=== PATIENT | female | born 1960 | race Caucasian/White ===

== ENCOUNTER 2023-02-13 14:18 | Emergency (ER) | payer OTHER ==
--- OUTSIDE RECORDS SUMMARY | 2023-02-13 14:22 | XMS REPORT | Continuity of Care Document ---
:1960 Author Organization [facility] t Address [address] [place] [address] [place] [id number] Care Team Providers Name Role Phone MURPHY SOLIMAN Primary Care Physician Unavailable RADIOLOGY Attending Clinician Unavailable NAOMI VILLANUEVA Attending Clinician Unavailable Pob, [facility] Main Attending Clinician Unavailable Naomi Villanueva MD Attending Clinician Doctor Unassigned, [place] Attending Clinician Unavailable RIVKA VUONG Attending Clinician Unavailable Elio Franks MD Attending Clinician ELIO FRANKS Attending Clinician Unavailable Zaki Jackson MD Attending Clinician ZAKI JACKSON Attending Clinician Unavailable Payers Payer Name Policy Type Policy Number Effective Date Expiration Date S deandra [employer] MEDICARE OUT [id number] 2020 OF NETWORK 00:00:00 Problems Condition Condition Condition Status Onset Resolution Last Treating Co mments Source Name Details Category Date Date Treatment Clinician Date Abnormal Abnormal Disease Active Unive rs EKG EKG 12-02 ity of 00:00: [place] 00 Medical Branch BAUTISTA BAUTISTA Disease Active Univers (dyspnea (dyspnea 12-02 ity of on on 00:00: [place] exertion) exertion) [facility] get Branch 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 12-02 [place]y [place] ([place] 00 Medical Branch Allergies, Adverse Reactions, Alerts Allergy Allergy Status Severity Reaction(s) Onset Inactive Treating Comm ents Source Name Type Date Date Clinician ASPIRIN DRUG Active N/V 2016-06 Univers INGREDI 0 ity of 00:00: [place] 00 Medical Branch Aspirin Propensi Active Nausea 2016-06 Univers ty to and/or 009 ity of adverse Vomiting 00:00: [place] reaction 00 Medical s Branch Social History Social Habit Start Date Stop Date Quantity Comments Source Exposure to Not sure University SARS-CoV-2 (event) [facility] History of tobacco Cigarette Smoker University of use [facility] Alcohol intake 2018-07-30 2018-07-30 Current University of 00:00:00 00:00:00 non-drinker of [facility] alcohol Branch (finding) Cigarettes smoked 2016-12-02 2016-12-02 Univers ity of current (pack per 00:00:00 00:00:00 [facility] ) - Reported Branch Cigarette 2016-12-02 2016-12-02 University of pack-years 00:00:00 00:00:00 [facility] Sex Ass[birth year] At [birth year] Universit y of 00:00:00 00:00:00 [facility] Smoking Status Start Date Stop Date Source Current every day smoker 2016-12-02 00:00:00 Uni versity of [facility] Medications Ordered Filled Start Stop Current Ordering Indication Dosage Frequency Signature Comments Components Source Medication Medication Date Date Medication? Clinician (SIG) Name Name acetaminoph 2016-06 Yes 1{tbl} Take 1 Un víctor en-codeine 1-09 tablet by ity of (TYLENOL-CO 00:00: mouth [place] DEINE #3) 00 every 6 Medical 300-30 mg (six) Branch tablet hours as needed for Pain (scale 4-6) (for cough). cyclobenzap 2016-06 Yes 10mg Take 1 Univ ers rine 10 mg 1-09 tablet by ity of tablet 00:00: mouth 3 00 (three) Medical times [place] daily. acetaminoph 2016-06 Yes 1{tbl} Take 1 Un víctor en-codeine 1-09 tablet by ity of (TYLENOL-CO 00:00: mouth [place] DEINE #3) 00 every 6 Medical 300-30 mg (six) Branch tablet hours as needed for Pain (scale 4-6) (for cough). cyclobenzap 2016-06 Yes 10mg Take 1 Univ ers rine 10 mg 1-09 tablet by ity of tablet 00:00: mouth 3 [place] 00 (three) Medical times [place] daily. acetaminoph 2016-06 Yes 1{tbl} Take 1 Un víctor en-codeine 1-09 tablet by ity of (TYLENOL-CO 00:00: mouth [place] DEINE #3) 00 every 6 Medical 300-30 mg (six) Branch tablet hours as needed for Pain (scale 4-6) (for cough). cyclobenzap 2016-06 Yes 10mg Take 1 Univ ers rine 10 mg 1-09 tablet by ity of tablet 00:00: mouth 3 [place] 00 (three) Medical times Branch daily. acetaminoph 2016-06 Yes 1{tbl} Take 1 Un víctor en-codeine 1-09 tablet by ity of (TYLENOL-CO 00:00: mouth [place] DEINE #3) 00 every 6 Medical 300-30 mg (six) Branch tablet hours as needed for Pain (scale 4-6) (for cough). cyclobenzap 2016-06 Yes 10mg Take 1 Univ ers rine 10 mg 1-09 tablet by ity of tablet 00:00: mouth 3 [place] 00 (three) Medical times Branch daily. acetaminoph 2016-06 Yes 1{tbl} Take 1 Un víctor en-codeine 1-09 tablet by ity of (TYLENOL-CO 00:00: mouth [place] DEINE #3) 00 every 6 Medical 300-30 mg (six) Branch tablet hours as needed for Pain (scale 4-6) (for cough). cyclobenzap 2016-06 Yes 10mg Take 1 Univ ers rine 10 mg 1-09 tablet by ity of tablet 00:00: mouth 3 [place] 00 (three) Medical times Branch daily. acetaminoph 2016-06 Yes 1{tbl} Take 1 Un víctor en-codeine 1-09 tablet by ity of (TYLENOL-CO 00:00: mouth [place] DEINE #3) 00 every 6 Medical 300-30 mg (six) Branch tablet hours as needed for Pain (scale 4-6) (for cough). cyclobenzap 2016-06 Yes 10mg Take 1 Univ ers rine 10 mg 1-09 tablet by ity of tablet 00:00: mouth 3 [place] 00 (three) Medical times Branch daily. acetaminoph 2016-06 Yes 1{tbl} Take 1 Un víctor en-codeine 1-09 tablet by ity of (TYLENOL-CO 00:00: mouth [place] DEINE #3) 00 every 6 Medical 300-30 mg (six) Branch tablet hours as needed for Pain (scale 4-6) (for cough). cyclobenzap 2016-06 Yes 10mg Take 1 Univ ers rine 10 mg 1-09 tablet by ity of tablet 00:00: mouth 3 [place] 00 (three) Medical times Branch daily. acetaminoph 2016-06 Yes 1{tbl} Take 1 Un víctor en-codeine 1-09 tablet by ity of (TYLENOL-CO 00:00: mouth [place] DEINE #3) 00 every 6 Medical 300-30 mg (six) Branch tablet hours as needed for Pain (scale 4-6) (for cough). cyclobenzap 2016-06 Yes 10mg Take 1 Univ ers rine 10 mg 1-09 tablet by ity of tablet 00:00: mouth 3 [place] 00 (three) Medical times Branch daily. acetaminoph 2016-06 Yes 1{tbl} Take 1 Un víctor en-codeine 1-09 tablet by ity of (TYLENOL-CO 00:00: mouth [place] DEINE #3) 00 every 6 Medical 300-30 mg (six) Branch tablet hours as needed for Pain (scale 4-6) (for cough). cyclobenzap 2016-06 Yes 10mg Take 1 Univ ers rine 10 mg 1-09 tablet by ity of tablet 00:00: mouth 3 [place] 00 (three) Medical times Branch daily. acetaminoph 2016-06 Yes 1{tbl} Take 1 Un víctor en-codeine 1-09 tablet by ity of (TYLENOL-CO 00:00: mouth [place] DEINE #3) 00 every 6 Medical 300-30 mg (six) Branch tablet hours as needed for Pain (scale 4-6) (for cough). cyclobenzap 2016-06 Yes 10mg Take 1 Univ ers rine 10 mg 1-09 tablet by ity of tablet 00:00: mouth 3 [place] 00 (three) Medical times Branch daily. acetaminoph 2016-06 Yes 1{tbl} Take 1 Un víctor en-codeine 1-09 tablet by ity of (TYLENOL-CO 00:00: mouth [place] DEINE #3) 00 every 6 Medical 300-30 mg (six) Branch tablet hours as needed for Pain (scale 4-6) (for cough). cyclobenzap 2016-06 Yes 10mg Take 1 Univ ers rine 10 mg 1-09 tablet by ity of tablet 00:00: mouth 3 [place] 00 (three) Medical times Branch daily. acetaminoph 2016-06 Yes 1{tbl} Take 1 Un víctor en-codeine 1-09 tablet by ity of (TYLENOL-CO 00:00: mouth [place] DEINE #3) 00 every 6 Medical 300-30 mg (six) Branch tablet hours as needed for Pain (scale 4-6) (for cough). cyclobenzap 2016-06 Yes 10mg Take 1 Univ ers rine 10 mg 1-09 tablet by ity of tablet 00:00: mouth 3 [place] 00 (three) Medical times [place] daily. APIXABAN 2016-06 Yes [id number] Take by U nivers (ELIQUIS 0-09 mouth. ity of ORAL) 20:04: [address] APIXABAN 2016-06 Yes [id number] Take by U nivers (ELIQUIS 0-09 mouth. ity of ORAL) 20:04: [address] APIXABAN 2016-06 Yes [id number] Take by U nivers (ELIQUIS 0-09 mouth. ity of ORAL) 20:04: [address] APIXABAN 2016-06 Yes [id number] Take by U nivers (ELIQUIS 0-09 mouth. ity of ORAL) 20:04: [address] APIXABAN 2016-06 Yes [id number] Take by U nivers (ELIQUIS 0-09 mouth. ity of ORAL) 20:04: [address] APIXABAN 2016-06 Yes [id number] Take by U nivers (ELIQUIS 0-09 mouth. ity of ORAL) 20:04: [address] APIXABAN 2016-06 Yes [id number] Take by U nivers (ELIQUIS 0-09 mouth. ity of ORAL) 20:04: [address] APIXABAN 2016-06 Yes [id number] Take by U nivers (ELIQUIS 0-09 mouth. ity of ORAL) 20:04: [address] APIXABAN 2016-06 Yes [id number] Take by U nivers (ELIQUIS 0-09 mouth. ity of ORAL) 20:04: [address] APIXABAN 2016-06 Yes [id number] Take by U nivers (ELIQUIS 0-09 mouth. ity of ORAL) 20:04: [address] Branch APIXABAN 2016-06 Yes [id number] Take by U nivers (ELIQUIS 0-09 mouth. ity of ORAL) 15:04: [address] APIXABAN 2016-06 Yes [id number] Take by U nivers (ELIQUIS 0-09 mouth. ity of ORAL) 15:04: [address] Branch Hydrocodone 2016-06 Yes 1{tbl} Take 1 Un víctor -Acetaminop 0-09 tablet by ity of hen 00:00: mouth [place] (VICODIN) 00 every 6 Medical 5-300 mg (six) Branch tablet hours as needed for Pain (scale 1-3). Hydrocodone 2016-06 Yes 1{tbl} Take 1 Un víctor -Acetaminop 0-09 tablet by ity of hen 00:00: mouth [place] (VICODIN) 00 every 6 Medical 5-300 mg (six) Branch tablet hours as needed for Pain (scale 1-3). Hydrocodone 2016-06 Yes 1{tbl} Take 1 Un víctor -Acetaminop 0-09 tablet by ity of hen 00:00: mouth [place] (VICODIN) 00 every 6 Medical 5-300 mg (six) Branch tablet hours as needed for Pain (scale 1-3). Hydrocodone 2016-06 Yes 1{tbl} Take 1 Un víctor -Acetaminop 0-09 tablet by ity of hen 00:00: mouth [place] (VICODIN) 00 every 6 Medical 5-300 mg (six) Branch tablet hours as needed for Pain (scale 1-3). Hydrocodone 2016-06 Yes 1{tbl} Take 1 Un víctor -Acetaminop 0-09 tablet by ity of hen 00:00: mouth [place] (VICODIN) 00 every 6 Medical 5-300 mg (six) Branch tablet hours as needed for Pain (scale 1-3). Hydrocodone 2016-06 Yes 1{tbl} Take 1 Un víctor -Acetaminop 0-09 tablet by ity of hen 00:00: mouth [place] (VICODIN) 00 every 6 Medical 5-300 mg (six) Branch tablet hours as needed for Pain (scale 1-3). Hydrocodone 2016-06 Yes 1{tbl} Take 1 Un víctor -Acetaminop 0-09 tablet by ity of hen 00:00: mouth [place] (VICODIN) 00 every 6 Medical 5-300 mg (six) Branch tablet hours as needed for Pain (scale 1-3). Hydrocodone 2016-06 Yes 1{tbl} Take 1 Un víctor -Acetaminop 0-09 tablet by ity of hen 00:00: mouth [place] (VICODIN) 00 every 6 Medical 5-300 mg (six) Branch tablet hours as needed for Pain (scale 1-3). Hydrocodone 2016-06 Yes 1{tbl} Take 1 Un víctor -Acetaminop 0-09 tablet by ity of hen 00:00: mouth [place] (VICODIN) 00 every 6 Medical 5-300 mg (six) Branch tablet hours as needed for Pain (scale 1-3). Hydrocodone 2016-06 Yes 1{tbl} Take 1 Un víctor -Acetaminop 0-09 tablet by ity of hen 00:00: mouth [place] (VICODIN) 00 every 6 Medical 5-300 mg (six) Branch tablet hours as needed for Pain (scale 1-3). Hydrocodone 2016-06 Yes 1{tbl} Take 1 Un víctor -Acetaminop 0-09 tablet by ity of hen 00:00: mouth [place] (VICODIN) 00 every 6 Medical 5-300 mg (six) Branch tablet hours as needed for Pain (scale 1-3). Hydrocodone 2016-06 Yes 1{tbl} Take 1 Un víctor -Acetaminop 0-09 tablet by ity of hen 00:00: mouth [place] (VICODIN) 00 every 6 Medical 5-300 mg (six) Branch tablet hours as needed for Pain (scale 1-3). ELIQUIS 5 2017-0 Yes 5mg Take 5 mg Uni vers mg tablet 9-21 by mouth 2 ity of 00:00: (two) [place] 00 times Medical daily. Branch phentermine 2017-0 Yes 37.5mg Take 37.5 Univers 37.5 mg 9-21 mg by ity of tablet 00:00: mouth [place] 00 every Medical morning. Branch ELIQUIS 5 2017-0 Yes 5mg Take 5 mg Uni vers mg tablet 9-21 by mouth 2 ity of 00:00: (two) [place] 00 times Medical daily. Branch phentermine 2017-0 Yes 37.5mg Take 37.5 Univers 37.5 mg 9-21 mg by ity of tablet 00:00: mouth [place] 00 every Medical morning. Branch ELIQUIS 5 2017-0 Yes 5mg Take 5 mg Uni vers mg tablet 9-21 by mouth 2 ity of 00:00: (two) [place] 00 times Medical daily. Branch ELIQUIS 5 2017-0 Yes 5mg Take 5 mg Uni vers mg tablet 9-21 by mouth 2 ity of 00:00: (two) [place] 00 times Medical daily. Branch phentermine 2017-0 Yes 37.5mg Take 37.5 Univers 37.5 mg 9-21 mg by ity of tablet 00:00: mouth [place] 00 every Medical morning. Branch phentermine 2017-0 Yes 37.5mg Take 37.5 Univers 37.5 mg 9-21 mg by ity of tablet 00:00: mouth [place] 00 every Medical morning. Branch ELIQUIS 5 2016-0 Yes 5mg Take 5 mg Uni vers mg tablet 9-21 by mouth 2 ity of 00:00: (two) [place] 00 times Medical daily. Branch phentermine 2017-0 Yes 37.5mg Take 37.5 Univers 37.5 mg 9-21 mg by ity of tablet 00:00: mouth [place] 00 every Medical morning. Branch ELIQUIS 5 2016-0 Yes 5mg Take 5 mg Uni vers mg tablet 9-21 by mouth 2 ity of 00:00: (two) [place] 00 times Medical daily. Branch phentermine 2017-0 Yes 37.5mg Take 37.5 Univers 37.5 mg 9-21 mg by ity of tablet 00:00: mouth [place] 00 every Medical morning. Branch ELIQUIS 5 2017-0 Yes 5mg Take 5 mg Uni vers mg tablet 9-21 by mouth 2 ity of 00:00: (two) [place] 00 times Medical daily. Branch phentermine 2017-0 Yes 37.5mg Take 37.5 Univers 37.5 mg 9-21 mg by ity of tablet 00:00: mouth [place] 00 every Medical morning. Branch ELIQUIS 5 2017-0 Yes 5mg Take 5 mg Uni vers mg tablet 9-21 by mouth 2 ity of 00:00: (two) [place] 00 times Medical daily. Branch phentermine 2017-0 Yes 37.5mg Take 37.5 Univers 37.5 mg 9-21 mg by ity of tablet 00:00: mouth [place] 00 every Medical morning. Branch ELIQUIS 5 2017-0 Yes 5mg Take 5 mg Uni vers mg tablet 9-21 by mouth 2 ity of 00:00: (two) [place] 00 times Medical daily. Branch phentermine 2017-0 Yes 37.5mg Take 37.5 Univers 37.5 mg 9-21 mg by ity of tablet 00:00: mouth [place] 00 every Medical morning. Branch ELIQUIS 5 2017-0 Yes 5mg Take 5 mg Uni vers mg tablet 9-21 by mouth 2 ity of 00:00: (two) [place] 00 times Medical daily. Branch phentermine 2017-0 Yes 37.5mg Take 37.5 Univers 37.5 mg 9-21 mg by ity of tablet 00:00: mouth [place] 00 every Medical morning. Branch ELIQUIS 5 2017-0 Yes 5mg Take 5 mg Uni vers mg tablet 9-21 by mouth 2 ity of 00:00: (two) [place] 00 times Medical daily. Branch phentermine 2017-0 Yes 37.5mg Take 37.5 Univers 37.5 mg 9-21 mg by ity of tablet 00:00: mouth [place] 00 every Medical morning. Branch ELIQUIS 5 2017-0 Yes 5mg Take 5 mg Uni vers mg tablet 9-21 by mouth 2 ity of 00:00: (two) [place] 00 times Medical daily. Branch phentermine 2017-0 Yes 37.5mg Take 37.5 Univers 37.5 mg 9-21 mg by ity of tablet 00:00: mouth [place] 00 every Medical morning. Branch Procedures Procedure Date / Time Performing Clinician Source Performed PROTEIN URINE, URINALYSIS 2021-04-02 15:24:00 Elio Franks [facility] [place] [facility] URINALYSIS 2021-04-02 15:24:00 Elio Franks [facility] [place] [facility] PHOSPHORUS 2021-04-02 15:16:00 Elio Franks [facility] [place] [facility] ALBUMIN 2021-04-02 15:16:00 Elio Franks [facility] [place] [facility] URIC ACID 2021-04-02 15:16:00 Elio Franks [facility] [place] [facility] THYROID STIMULATING 2021-04-02 15:16:00 Elio Franks [facility] HORMONE Medical Branch BASIC METABOLIC PANEL (NA, 2021-04-02 15:16:00 Elio Franks [facility] K, CL, CO2, GLUCOSE, BUN, Medica l Branch CREATININE, CA) ASSIGNMENT OF BENEFITS 2021-04-02 14:54:20 [facility] [place] [facility] ASSIGNMENT OF BENEFITS 2020-03-20 18:39:26 [facility] [place] [facility] ASSIGNMENT OF BENEFITS 2019-09-04 20:12:22 Doctor Unassigned, [facility] [place] [facility] NO SHOW OR MISSED 2019-08-26 16:29:44 Doctor Loly, [facility] APPOINTMENT POLICY [place] [facility]anc h ACKNOWLEDGEMENT CONSENT/REFUSAL FOR 2019-07-09 17:43:32 Doctor Loly, [facility] DIAGNOSIS AND TREATMENT [place] [facility] ASSIGNMENT OF BENEFITS 2019-07-09 17:43:12 Doctor Unassigned, [facility] [place] [facility] Encounters Start End Encounter Admission Attending Care Care Encounter Source Date/Time Date/Time Type Type Clinicians Facility Department ID 2022-09-14 2022-09-14 Outpatient R [facility]OLOG[facility] [id number] Univers 00:00:00 00:00:00 delmis [facility] 2022-03-30 2022-03-30 Outpatient R [facility] [id number] [facility] 13:15:00 13:15:00 NAOMI benites [facility] 2021-04-02 2021-04-02 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 [place] [facility] 1.2.8 40.114 [id number] [facility] 09:54:09 13:27:09 Visit Naomi [facility]ue[id number] [facility] [id number] Marya mendoza Professio [phone] [place] [address] Branch [facility] 2021-04-02 2021-04-02 Outpatient R [facility] [id number] [facility] 09:30:00 09:30:00 NAOMI benites [facility] 2021-04-02 2021-04-02 Orders Doctor ROLANDA [id number] Univers 00:00:00 00:00:00 Only Unassigned, LINDA [id number] ity of [place] [facility] [id number] [place] as [phone] [address] 2020-03-26 2020-03-26 [facility] [id number] Univers 14:00:00 14:00:00 RIVKA benites o f [facility] 2020-03-20 2020-03-20 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 Jeana, Adc Lab Main [facility] 1.2.8 40.114 [id number] Univers 13:51:21 14:06:21 Visit Elio Franks [id number] ity of [place] [id number] [place] Profess[place] [phone] [address] 2020-03-20 2020-03-20 [facility] [id number] Univers 13:45:00 13:45:00 MANAF ity [facility] 2020-03-20 2020-03-20 Orders Doctor ROLANDA [id number] Univers 00:00:00 00:00:00 Only Unassigned, LINDA [id number] ity of [place] [facility] [id number] [place] [phone] [address] 2019-09-04 2019-09-04 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 Jeana, [facility]c Lab Main [facility] 1.2.8 40.114 [id number] Univers 15:16:22 15:31:22 Visit Elio Franks [id number] ity of [place] 4[place]7.2.[place] Profess[place] [phone] [address] 2019-09-04 2019-09-04 [facility] [id number] Univers 15:15:00 15:15:00 MANAF ity [facility] 2019-09-04 2019-09-04 Orders Doctor ROLANDA [id number] Univers 00:00:00 00:00:00 Only Unassigned, LINDA [id number] ity of [place] [facility] [id number] [place] [phone] [address] 2019-08-28 2019-08-28 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 Jeana, [facility]c Lab Main [facility] 1.2.8 40.114 [id number] Univers 08:40:32 08:55:32 Visit SergeyZaki sibley Philippe [place] 350.1.13 .10 [place] 4[place]2.7.2.[place] [id number] [address] 2019-08-28 2019-08-28 Outpatient R SERGEY, [facility] [id number] Univers 08:45:00 08:45:00 ZAKI benites [facility] 2019-08-26 2019-08-26 Outpatient R BRUNAMiriam, [facility] [id number] Univers 11:30:00 11:30:00 ELIO benites [facility] 2019-08-26 2019-08-26 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 Jeana, [facility] Lab Main [facility] 1.2.8 40.114 [id number] Univers 10:29:40 11:22:05 Visit Elio Franks [id number] it[place] 4[place]2.7.2.[place] [phone] [address] 2019-08-26 2019-08-26 Orders Doctor ORANTES [id number] Univers 00:00:00 00:00:00 Only Unassigned, LINDA [id number] ity of [place] [facility] [id number] [place] [phone] [address] 2019-07-09 2019-07-09 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 Jeana, [facility] Lab Main [facility] 1.2.8 40.114 [id number] Univers 11:46:26 12:01:26 Visit Elio Franks [id number] ity [place] 4[place]2.[place].2.686 [place] [phone] [address] 2019-07-09 2019-07-09 Orders Doctor ORANTES 1.2.840.114 [id number] Univers 00:00:00 00:00:00 Only Unassigned, LINDA [id number] ity of [place] [facility] [id number] [place] as [phone] [address] Results Test Description Test Time Test Comments Results Result Comments Source THYROID STIMULATING HORMONE 2021-04-02 16:50:19 Test Item Value Reference Range Interpretation Comme nts TSH (test code = 5845399054) See_Comment L [Automated message] The system which generated this result transmitted ref erence range: 0.45 - 4.70 mIU /L. The reference range was not u sed to interpret this result as normal/abnormal. Lab Interpretation (test code Abnormal = 24732-0) [facility] METABOLIC PANEL (NA, K, CL, CO2, GLUCOSE, BUN, CREATININE, CA)2021-04-02 16:21:34 Test Item Value Reference Range Interpretation Comments NA (test code = 143 mmol/L 135-145 8284688915) K (test code = 4.6 mmol/L 3.5-5.0 4814976074) CL (test code = 106 mmol/L 98-108 9218989273) CO2 TOTAL (test code = 34 mmol/L 23-31 H 0846034424) AGAP (test code = 2-16 5611026649) BUN (test code = 19 mg/dL 7-23 2786841544) GLUCOSE (test code = 115 mg/dL 70-110 H 6706965993) CREATININE (test code = 0.97 mg/dL 0.50-1.04 9902823417) CALCIUM (test code = 10.1 mg/dL 8.6-10.6 5121517204) eGFR (test code = mL/min/1.73m2 9742484178) FAISAL (test code = FAISAL) Association of Glomerular Filtration Rate (GFR) and Staging of Kidney Disease* + --+ --+ ------+| GFR (mL/min/1.73 m2) ?| With Kidney Damage ?| ?Without Kidney Damage+ --------+ --------+ +| ?>90 ?| ?Stage one ?| ? Normal ?+ ---+ ---+ -------+| ?60-89 ?| ?Stage two ?| ? Decreased GFR ? + --+ --+ ------+| ?30-59 ?| ?Stage three ?| ? Stage three ? + --+ --+ ------+| ?15-29 ?| ?Stage four ? | ? Stage four ?+ ---+ ---+ -------+| ?<15 (or dialysis) ? ?| ?Stage five ? | ? Stage five ?+ ---+ ---+ -------+ *Each stage assumes the associated GFR level has been in effect for at least three months. ?Stages 1 to 5, with or without kidney disease, indicate chronic kidney disease. Notes: Determination of stages one and two (with eGFR >59mL/min/1.73 m2) requires estimation of kidney damage for at least three months as defined by structural or functional abnormalities of the kidney, manifested by either:Pathological abnormalities or Markers of kidney damage (including abnormalities in the composition of the blood or urine or abnormalities in imaging tests). Lab Interpretation Abnormal (test code = 29389-2) [facility] [place] [facility] 16:21:14 Test Item Value Reference Range Interpretation Comments PHOSPHORUS (test code = 7007080576) 3.1 mg/dL 2.5-5.0 Lab Interpretation (test code = Normal 19107-4) [facility] [place] [facility] [id number] 16:21:14 Test Item Value Reference Range Interpretation Comments URIC ACID (test code = 6839814265) 4.8 mg/dL 2.9-6.0 Lab Interpretation (test code = Normal 47001-5) [facility] [place] [facility] 16:17:53 Test Item Value Reference Range Interpretation Comments ALBUMIN (test code = 6810505805) 4.3 g/dL 3.5-5.0 Lab Interpretation (test code = Normal 60071-9) [facility] [place] [facility]"
--- NOTE | 2023-02-13 16:43 | RAD REPORT ---
EXAM DESCRIPTION: USExtremity Venous Uni Ltd02/13/2023 4:15 pm CLINICAL HISTORY: left leg swelling COMPARISON: 2017 FINDINGS: Left common femoral, superficial femoral, greater saphenous, popliteal and posterior tibi al veins are compressible and demonstrate augmentation. Doppler demonstrates good flow. Grayscale, color and spectral analysis performed on all vessels IMPRESSION: No evidence of deep venous thrombosis involving the left lower extremity.
[2023-02-13 17:36] LABS: Hematocrit 44.7 % (36.0-45.0); Lymphocytes % 31.8 % (15.3-44.8); MCV 98.8 fL (80-100); MPV 7.4 fL (7.6-11.3); Platelets 255 thou/uL (152-406); RBC Red Blood Cell Count 4.53 M/uL (3.86-4.86)
[2023-02-13 17:54] LABS: Potassium 3.7 mEq/L (3.5-5.1)
--- NOTE | 2023-02-13 18:14 | EDPHYS ---
Physician Documentation [facility] Name: Carolann Gonzales Age: 62 yrs Sex: Female : 1960 Arrival Date: 02/13/2023 Time: 14:18 Bed 12 Private MD: ED Physician Kang Pineda HPI: 02/13 15:12 This 62 yrs old Female presents to ER via Ambulatory with complaints of Leg Swelling. aj3 15:12 Left lower leg swelling has been ongoing for the last couple months but worse the last aj3 2 days. She is on Eliquis for previous DVT and PE. She denies any leg pain, redness, bruising, shortness of breath, fever or chills.. 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 - Social history:: Smoking status: Patient reports the use of cigarette tobacco products, smokes one pack cigarettes per day. ROS: 15:31 Constitutional: Negative for fever, chills, and weight loss, Cardiovascular: Negative aj3 for chest pain, palpitations, and edema, Respiratory: Negative for shortness of breath, cough, wheezing, and pleuritic chest pain, Skin: Negative for injury, rash, and discoloration, Neuro: Negative for syncope, headache, weakness, numbness, tingling, and seizure. 15:31 MS/extremity: Positive for swelling, Negative for pain, tenderness. Exam: 15:30 Constitutional: This is a well developed, well nourished patient who is awake, alert, aj3 and in no acute distress. Cardiovascular: Regular rate and rhythm with a normal S1 and S2. No gallops, murmurs, or rubs. Normal PMI, no JVD. No pulse deficits. Respiratory: Lungs have equal breath sounds bilaterally, clear to auscultation and percussion. No rales, rhonchi or wheezes noted. No increased work of breathing, no retractions or nasal flaring. Skin: Warm, dry with normal turgor. Normal color with no rashes, no lesions, and no evidence of cellulitis. Neuro: Awake and alert, GCS 15, oriented to person, place, time, and situation. Motor strength 5/5 in all extremities. Sensory grossly intact. Normal gait. 15:30 Musculoskeletal/extremity: Exam is negative for ecchymosis, erythema, tenderness, Extremities: noted in the lateral aspect of left calf and left ontiveros: swelling. Vital Signs: 14:52 BP 93 / 60; Pulse 74; Resp 18; Temp 97.2; Pulse Ox 96% ; Pain 0/10; ll1 17:22 BP 112 / 84; Pulse 70; Resp 16; Pulse Ox 97% on R/A; mb9 14:52 Pain Scale: Adult ll1 MDM: 14:59 Patient medically screened. aj3 17:56 Differential Diagnosis DVT, electrolyte imbalance, fluid retention, renal aj3 insufficiency, CHF. Data reviewed: vital signs, nurses notes. Historians other than the Patient: Spouse/Significant Other: . Care significantly affected by the following chronic conditions: Chronic Obstructive Pulmonary Disease, DVT/PE. 17:56 Counseling: I had a detailed discussion with the patient and/or guardian regarding aj3 radiology results. 02/13 15:15 Order name: BMP; Complete Time: 18:05 aj3 02/13 15:15 Order name: CBC with Diff; Complete Time: 17:42 aj3 02/13 15:15 Order name: BNP; Complete Time: 18:05 aj3 02/13 15:15 Order name: US Extremity Venous Unilateral Ltd; Complete Time: 16:58 aj3 Administered Medications: No medications were administered Disposition: 17:56 I reviewed the patient's care provided by Advanced Practice Provider \\T\\ agree w/ the cp3 diagnosis \\T\\ care plan. I personally saw the pt \\T\\ performed a substantive portion of the visit, incldng all aspects of the (History/Exam/Medical Decision Making). Disposition Summary: 02/13/23 18:13 Discharge Ordered Location: Home aj3 Problem: new aj3 Symptoms: are unchanged aj3 Condition: Stable aj3 Diagnosis - Edema, unspecified aj3 - Disorder of kidney and ureter, unspecified aj3 - Family history of asthma and other chronic lower respiratory diseases aj3 Followup: aj3 - With: Private Physician - When: - Reason: Recheck today's complaints, Re-evaluation by your physician Discharge Instructions: - Discharge Summary Sheet aj3 - Peripheral Edema aj3 Forms: - Work release form aj3 - Medication Reconciliation Form aj3 - Thank You Letter aj3 - Antibiotic Education aj3 - Prescription Opioid Use aj3 - Patient Portal Instructions aj3 - Leadership Thank You Letter aj3 Signatures: Dispatcher [employer] Kang Valdivia MD MD cp3 Asiya James RN RN ll1 Ana Fermin NP UNDERWRITING SALES REPRESENTATIVE aj3 Corrections: (The following items were deleted from the chart) 17:57 15:12 Left leg swelling this been ongoing for the last couple months but worse the last aj3 2 days. She is on Eliquis for previous DVT and PE.. aj3
--- NOTE | 2023-02-13 18:14 | ER ---
Nurse's Notes [facility] Name: Carolann Gonzales Age: 62 yrs Sex: Female : 1960 Arrival Date: 02/13/2023 Time: 14:18 Bed 12 Private MD: Diagnosis: Edema, unspecified;Disorder of kidney and ureter, unspecified;Family history of asthma and other chronic lower respiratory diseases Presentation: 02/13 14:52 Chief complaint: Patient states: L leg swelling (more severe) for 2 days. Happening for ll1 months. No falls/injury. Coronavirus screen: Vaccine status: Patient reports being unvaccinated. Client denies travel out of the [place] in the last 14 days. At this time, the client does not indicate any symptoms associated with coronavirus-19. Ebola Screen: Patient denies travel to an Ebola-affected area in the 21 days before illness onset. Initial Sepsis Screen: Does the patient meet any 2 criteria? No. Patient's initial sepsis screen is negative. Does the patient have a suspected source of infection? No. Patient's initial sepsis screen is negative. Risk Assessment: Do you want to hurt yourself or someone else? Patient reports no desire to harm self or others. Onset of symptoms was February 12, 2023. 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 - Social history:: Smoking status: Patient reports the use of cigarette tobacco products, smokes one pack cigarettes per day. Screenin:22 [facility] ED Fall Risk Assessment (Adult) History of falling in the last 3 months, mb9 including since admission No falls in past 3 months (0 pts) Confusion or Disorientation No (0 pts) Intoxicated or Sedated No (0 pts) Impaired Gait No (0 pts) Mobility Assist Device Used No (0 pt) Altered Elimination No (0 pt) Score/Fall Risk Level 0 - 2 = Low Risk Oriented to surroundings, Maintained a safe environment, Educated pt \\T\\ family on fall prevention, incl call for assistance when getting out of bed. Abuse screen: Denies threats or abuse. Nutritional screening: No deficits noted. Tuberculosis screening: No symptoms or risk factors identified. Assessment: 17:09 Reassessment: pt brought back to ER room. mb9 17:21 General: Appears in no apparent distress. Behavior is calm, cooperative. Pain: mb9 Complains of pain in left leg Pain does not radiate. Pain currently is 0 out of 10 on a pain scale. Quality of pain is described as throbbing, Is intermittent. Neuro: Felipe Agitation-Sedation Scale (RASS): 0 - Alert and Calm Level of Consciousness is awake, alert, obeys commands, Oriented to person, place, time, situation, Appropriate for age. Cardiovascular: Patient's skin is warm and dry. Cardiovascular: Pulses are all present. Respiratory: Airway is patent Respiratory effort is even, unlabored, Respiratory pattern is regular, symmetrical. GI: Abdomen is flat, non-distended. : No signs and/or symptoms were reported regarding the genitourinary system. Derm: Skin is pink, warm \\T\\ dry. Musculoskeletal: Swelling present in left leg. 18:32 Reassessment: No changes from previously documented assessment. Patient and/or family mb9 updated on plan of care and expected duration. Pain level reassessed. Patient is alert, oriented x 3, equal unlabored respirations, skin warm/dry/pink. Vital Signs: 14:52 BP 93 / 60; Pulse 74; Resp 18; Temp 97.2; Pulse Ox 96% ; Pain 0/10; ll1 17:22 BP 112 / 84; Pulse 70; Resp 16; Pulse Ox 97% on R/A; mb9 14:52 Pain Scale: Adult ll1 ED Course: 14:21 Patient arrived in ED. im 14:22 Ana Fermin NP is PHCP. aj3 14:22 Kang Pineda MD is Attending Physician. aj3 14:54 Triage completed. ll1 14:54 Arm band placed on. ll1 16:17 US Extremity Venous Unilateral Ltd In Process Unspecified. EDMS 17:21 Maryam Tamez RN is Primary Nurse. mb9 17:22 Placed in gown. Bed in low position. Call light in reach. Side rails up X 1. Client mb9 placed on continuous cardiac and pulse oximetry monitoring. NIBP monitoring applied. library monitor on. 17:22 No provider procedures requiring assistance completed. Inserted saline lock: 22 gauge mb9 in left antecubital area, using aseptic technique. 18:32 IV discontinued, intact, bleeding controlled, No redness/swelling at site. Pressure mb9 dressing applied. Administered Medications: No medications were administered Medication: 17:23 VIS not applicable for this client. mb9 Outcome: 18:13 Discharge ordered by . jovan 18:32 Discharged to home ambulatory. mb9 18:32 Condition: stable 18:32 Discharge instructions given to patient, Instructed on discharge instructions, follow up and referral plans. Demonstrated understanding of instructions, follow-up care. 18:32 Patient left the ED. mb9 Signatures: Dispatcher [employer] EDAsiya Salamanca RN RN ll1 Ana Fermin, GAUGER DELIVERY GAUGER DELIVERY [email or web address] Maryam Tamez RN RN mb9 Nimo Santoyo Corrections: (The following items were deleted from the chart) 14:55 14:52 Chief complaint: Patient states: L leg swelling for 2 days. No falls/injury. ll1 ll1
[2023-02-13 18:41] VITALS: TEMP 97.2
[2023-02-13 18:42] VITALS: BP 112/84; O2SAT 97
== END 2023-02-13 18:32 | disposition home or self-care (01) ==
LOC: ER 14:18
DX: R60.9 Edema, unspecified (principal); N28.9 Disorder of kidney and ureter, unspecified; J44.9 Chronic obstructive pulmonary disease, unspecified; Z82.5 Family history of asthma and other chronic lower respiratory diseases; F17.210 Nicotine dependence, cigarettes, uncomplicated; Z86.718 Personal history of other venous thrombosis and embolism; Z79.01 Long term (current) use of anticoagulants; Z88.5 Allergy status to narcotic agent; Z88.6 Allergy status to analgesic agent
CPT/HCPCS: 36415; 80048; 83880; 85025; 93971; 99284

== ENCOUNTER 2024-02-09 11:02 | Emergency (ER) | payer OTHER ==
[2024-02-09 12:33] LABS: Absolute Basophils 0.1 K/uL (0-0.5); Absolute Eosinophils 0.1 K/uL (0-0.5); Absolute Lymphocytes (CBC) 1.9 K/uL (0.7-4.9); Absolute Monocytes 0.4 K/uL (0.1-1.3); Absolute Neutrophil 3.7 K/uL (1.8-8.0); Basophils % 1.7 % (0-1.3); Eosinophils % 1.8 % (0-4.4); Hematocrit 44.1 % (36.0-45.0); Hemoglobin 13.9 g/dL (12.0-15.0); MCH 31.9 pg (27.0-35.0); MCHC 31.6 g/dL (32.0-36.0); MCV 101.1 fL (80-100); MPV 7.9 fL (7.6-11.3); Monocytes % 6.8 % (3.3-12.3); Neutrophils % 58.7 % (41.7-73.7); Platelets 265 thou/uL (152-406); RBC Red Blood Cell Count 4.37 M/uL (3.86-4.86); Red Cell Distribution Width 14.3 % (12.1-15.2)
[2024-02-09 12:45] LABS: Albumin 3.4 g/dL (3.4-5.0); Albumin/Globulin Ratio 0.9 (1.1-1.8); Anion Gap 4.4 mEq/L (5.0-15.0); Bilirubin Total 0.3 mg/dL (0.2-1.0); Potassium 4.4 mEq/L (3.5-5.1); Protein, Total 7.4 g/dL (6.4-8.2)
--- NOTE | 2024-02-09 14:19 | RAD REPORT ---
EXAM DESCRIPTION: CT - Chest For Pe Angio - 02/09/2024 1:04 pm CLINICAL HISTORY: CHEST PAIN COMPARISON: Lung Cancer Screening CT W/O dated 10/06/2022 TECHNIQUE: Thin axial CT images of the chest were obtained following administration of 100 mL Isovue 370 IV contrast. Multiplanar reconstructions, and maximum intensity projection reconstructions were generated and reviewed. Exam utilizes a protocol for optimal evaluation of pulmonary arterial tree. All CT scans are performed using dose optimization technique as appropriate and may include automated exposure control or mA/KV adjustment according to patient size. FINDINGS: Pulmonary arteries are normal. No emboli or other suspicious finding. No acute or signific ant aorta findings. Bronchiectatic changes in the lower lobes more pronounced on the right, with volume loss in the right more than left lobe. Areas of mucous plugging and aerated secretions in the bronchiectatic segments, also more pronounced on the right, with adjacent subsegmental airspace opacities, which are progress peter since the prior CT. Background mild to moderate centrilobular emphysematous changes. No pleural t hickening or pleural effusion. No pneumothorax. No abnormal mediastinal or hilar masses or lymphadenopathy seen. No chest wall mass or abnormal axill iary lymphadenopathy. IMPRESSION: No evidence of acute central pulmonary emboli. Bilateral lower lobe bronchiectatic changes, with progressive bronchial secretions/mucus plugging, an d adjacent subsegmental elements of airspace opacification, more so on the right. Findings suggest ac anna exacerbation of chronic lung disease, possibly COPD.
--- NOTE | 2024-02-09 15:39 | EDPHYS ---
Physician Documentation [facility] Name: Carolann Gonzales Age: 63 yrs Sex: Female : 1960 Arrival Date: 02/09/2024 Time: 11:02 Bed 19 Private MD: ED Physician Rajinder Monae HPI: 02/08 11:44 This 63 yrs old Female presents to ER via Ambulatory with complaints of ms3 Spitting up blood. 11:44 Patient is a 63-year-old female with past medical history of PE, DVT, COPD, pacemaker, ms3 uterine cancer presenting to the ER for 3-day history of coughing up blood clots upon waking in the mornings. Patient states that since Monday she has noticed 1-2 thick blood clots that she is coughed up with no additional bloody sputum production during the day after these. Patient reports she takes Eliquis for history of PE and DVT that was reduced from 5 mg twice daily to 2.5 mg daily last May after placement of a pacemaker. Patient also reports she has noticed an increase in coughing over the last few days but denies any chest pain, shortness of breath, fevers, chills.. Historical: - Allergies: 11:20 Codeine; hb 11:20 Tylenol; hb - Home Meds: 11:20 Eliquis 2.5 mg oral tablet once [Active]; oxybutynin chloride 10 mg Oral Tablet, hb Extended Release 24 hr daily [Active]; furosemide 20 mg Oral tablet [Active]; Senokot 8.6 mg Oral tablet daily [Active]; albuterol sulfate 2.5 mg /3 mL (0.083 %) Nebulizer Solution for Nebulization as needed [Active]; albuterol sulfate 90 mcg/actuation Inhl HFA Aerosol Inhaler as needed [Active]; simvastatin 20 mg Oral tablet daily [Active]; metoprolol tartrate 25 mg Oral tablet daily [Active]; - PMHx: 11:20 COPD; DVT; Uterine CA; hb - PSHx: 11:20 section; Cholecystectomy; hb - Immunization history:: Adult Immunizations up to date. - Infectious Disease History:: Denies. - Social history:: Smoking status: Patient reports the use of cigarette tobacco products, smokes 1.5 packs per day. ROS: 11:39 Constitutional: Negative for fever, and chills. ENT: Negative for injury, pain, and ms3 discharge, Neck: Negative for injury, pain, and swelling, Cardiovascular: Negative for chest pain, and palpitations. Respiratory: Negative for shortness of breath, wheezing, and pleuritic chest pain, Abdomen/GI: Negative for abdominal pain, nausea, vomiting, diarrhea, and constipation, : Negative for injury, bleeding, discharge, and swelling, Hematologic/Lymphatic: Negative for swollen nodes, abnormal bleeding, and unusual bruising, 11:39 ENT: Positive for 11:39 Respiratory: Positive for cough, hemoptysis, Negative for shortness of breath, wheezing, 11:39 MS/extremity: Positive for swelling, Negative for acute changes, pain, tingling, Exam: 11:58 Constitutional: This is a well developed, well nourished patient who is awake, alert, ms3 and in no acute distress. Neck: Trachea midline, no cervical lymphadenopathy. Supple, full range of motion without nuchal rigidity, or vertebral point tenderness. No Meningismus. Cardiovascular: Regular rate and rhythm with a normal S1 and S2. No gallops, murmurs, or rubs. Normal PMI, no JVD. No pulse deficits. 11:58 Respiratory: the patient does not display signs of respiratory distress, Respirations: normal, Breath sounds: bronchial sounds, that are mild, are heard in the left upper lobe, 13:19 ECG was reviewed by the Attending Physician. ms3 Vital Signs: 11:17 BP 101 / 60; Pulse 69; Resp 16; Temp 97.7(TE); Pulse Ox 96% on R/A; Weight 49.9 kg; hb Height 5 ft. 1 in. ; Pain 0/10; 12:27 BP 87 / 55; Pulse 70; Resp 20; Temp 97.9(O); Pulse Ox 90% on R/A; kj2 13:08 BP 111 / 75; Pulse 70; Resp 16; Pulse Ox 96% ; kj2 13:53 BP 112 / 71; Pulse 70; Resp 18; Pulse Ox 94% on R/A; kj2 15:41 BP 114 / 85; Pulse 72; Resp 18; Temp 97.9(O); Pulse Ox 100% on R/A; kj2 11:17 Body Mass Index 20.78 (49.90 kg, 154.94 cm) hb 11:17 Pain Scale: Adult hb MDM: 11:44 Patient medically screened. ms3 12:01 Differential Diagnosis: Pneumonia Other PE, Neoplasm. ms3 17:19 Data reviewed: vital signs, nurses notes, lab test result(s), EKG, radiologic studies, ms3 and as a result, I will discharge patient. Care significantly affected by the following chronic conditions: Chronic Obstructive Pulmonary Disease. Counseling: I had a detailed discussion with the patient and/or guardian regarding the historical points, exam findings, and any diagnostic results supporting the discharge/admit diagnosis, lab results, radiology results, the need for outpatient follow up, to return to the emergency department if symptoms worsen or persist or if there are any questions or concerns that arise at home. Special discussion: I discussed with the patient/guardian in detail that at this point there is no indication for admission to the hospital. It is understood, however, that if the symptoms persist or worsen the patient needs to return immediately for re-evaluation. ED course: Discussed CT and labs with patient and her . Patient to follow-up with her primary care physician in 2 to 3 days. Patient understands and agrees with plan. All questions were answered. Return precautions discussed include worsening symptoms, or any other concerns. 02/08 12:00 Order name: CBC with Diff; Complete Time: 12:50 ms3 02/08 12:00 Order name: CMP; Complete Time: 12:50 ms3 02/08 12:00 Order name: CT Chest For PE Angio; Complete Time: 14:22 ms3 02/08 12:00 Order name: EKG; Complete Time: 12:00 ms3 02/08 12:00 Order name: EKG - Nurse/Tech; Complete Time: 12:22 ms3 EC:19 Rate is 70 beats/min. Rhythm is regular. [place] interval is normal. QRS interval is ms3 prolonged. Clinical impression: NSR w/ Non-specific ST/T Changes and non-specific intraventricular block. Interpreted by me. Reviewed by me. Administered Medications: No medications were administered Disposition Summary: 02/09/24 15:38 Discharge Ordered Notes: Location: Home ms3 Condition: Stable ms3 Diagnosis - COPD/ Chronic obstructive pulmonary disease, unspecified ms3 - Hemoptysis ms3 Followup: ms3 - With: Eduard Varela MD - When: 2 - 3 days - Reason: Recheck today's complaints Discharge Instructions: - Discharge Summary Sheet ms3 - Chronic Obstructive Pulmonary Disease ms3 - Hemoptysis ms3 Forms: - Medication Reconciliation Form ms3 - Antibiotic Education ms3 - Prescription Opioid Use ms3 - Patient Portal Instructions ms3 - Leadership Thank You Letter ms3 Signatures: Dispatcher [employer] EDMS La Vivar, RN RN Rajinder Powell DO DO ms3 Lotus Michele RN RN kj2 Corrections: (The following items were deleted from the chart) 12:00 12:00 CBC+H.LAB.BRZ ordered. EDMS EDMS 12:00 12:00 COMPREHENSIVE METABOLIC PANEL+C.LAB.BRZ ordered. EDMS EDMS 12:00 12:00 Chest For PE Angio+CT.RAD.BRZ ordered. EDMS EDMS 12:27 12:26 PMHx: "Myotonia"; kj2 kj2
--- NOTE | 2024-02-09 15:39 | ER ---
Nurse's Notes [facility] Name: Carolann Gonzales Age: 63 yrs Sex: Female : 1960 Arrival Date: 02/09/2024 Time: 11:02 Bed 19 Private MD: Diagnosis: COPD/ Chronic obstructive pulmonary disease, unspecified;Hemoptysis Presentation: 02/08 11:17 Chief complaint: Coughing up blood clots x 2 days. Hx of DVT and PE. Takes Eliquis. hb Coronavirus screen: At this time, the client does not indicate any symptoms associated with coronavirus-19. Ebola Screen: No symptoms or risks identified at this time. Initial Sepsis Screen: Does the patient meet any 2 criteria? No. Patient's initial sepsis screen is negative. Does the patient have a suspected source of infection? No. Patient's initial sepsis screen is negative. Risk Assessment: Do you want to hurt yourself or someone else? Patient reports no desire to harm self or others. Onset of symptoms was February 08, 2024. 11:17 Method Of Arrival: Ambulatory hb 11:17 Acuity: GONZALEZ 3 hb Historical: - Allergies: 11:20 Codeine; hb 11:20 Tylenol; hb - Home Meds: 11:20 Eliquis 2.5 mg oral tablet once [Active]; oxybutynin chloride 10 mg Oral Tablet, hb Extended Release 24 hr daily [Active]; furosemide 20 mg Oral tablet [Active]; Senokot 8.6 mg Oral tablet daily [Active]; albuterol sulfate 2.5 mg /3 mL (0.083 %) Nebulizer Solution for Nebulization as needed [Active]; albuterol sulfate 90 mcg/actuation Inhl HFA Aerosol Inhaler as needed [Active]; simvastatin 20 mg Oral tablet daily [Active]; metoprolol tartrate 25 mg Oral tablet daily [Active]; - PMHx: 11:20 COPD; DVT; Uterine CA; hb - PSHx: 11:20 section; Cholecystectomy; hb - Immunization history:: Adult Immunizations up to date. - Infectious Disease History:: Denies. - Social history:: Smoking status: Patient reports the use of cigarette tobacco products, smokes 1.5 packs per day. Screenin:25 [facility] ED Fall Risk Assessment (Adult) History of falling in the last 3 months, kj2 including since admission No falls in past 3 months (0 pts) Confusion or Disorientation No (0 pts) Intoxicated or Sedated No (0 pts) Impaired Gait No (0 pts) Mobility Assist Device Used No (0 pt) Altered Elimination No (0 pt) Score/Fall Risk Level 0 - 2 = Low Risk Maintained a safe environment, Hourly rounding (assess needs \\T\\ fall precautionary measures) done. Abuse screen: Denies threats or abuse. Denies injuries from another. Nutritional screening: No deficits noted. Tuberculosis screening: No symptoms or risk factors identified. Assessment: 12:22 General: Appears in no apparent distress. Behavior is calm, cooperative. Pain: Denies kj2 pain. Neuro: Level of Consciousness is awake, alert, obeys commands, Oriented to person, place, time, situation. Cardiovascular: Patient's skin is warm and dry. Respiratory: Airway is patent Respiratory effort is unlabored. GI: No deficits noted. : No deficits noted. 13:57 Reassessment: Patient appears in no apparent distress at this time. Patient and/or kj2 family updated on plan of care and expected duration. Pain level reassessed. Patient is alert, oriented x 3, equal unlabored respirations, skin warm/dry/pink. 14:51 Reassessment: Patient appears in no apparent distress at this time. Patient and/or kj2 family updated on plan of care and expected duration. Pain level reassessed. Patient is alert, oriented x 3, equal unlabored respirations, skin warm/dry/pink. Vital Signs: 11:17 BP 101 / 60; Pulse 69; Resp 16; Temp 97.7(TE); Pulse Ox 96% on R/A; Weight 49.9 kg; hb Height 5 ft. 1 in. ; Pain 0/10; 12:27 BP 87 / 55; Pulse 70; Resp 20; Temp 97.9(O); Pulse Ox 90% on R/A; kj2 13:08 BP 111 / 75; Pulse 70; Resp 16; Pulse Ox 96% ; kj2 13:53 BP 112 / 71; Pulse 70; Resp 18; Pulse Ox 94% on R/A; kj2 15:41 BP 114 / 85; Pulse 72; Resp 18; Temp 97.9(O); Pulse Ox 100% on R/A; kj2 11:17 Body Mass Index 20.78 (49.90 kg, 154.94 cm) hb 11:17 Pain Scale: Adult hb ED Course: 11:06 Patient arrived in ED. mg5 11:20 Triage completed. hb 11:24 Arm band placed on. hb 11:28 Rajinder Monae DO is Attending Physician. ms3 12:03 Lotus Michele, RN is Primary Nurse. kj2 12:22 CMP Sent. kj2 12:22 CBC with Diff Sent. kj2 12:23 No provider procedures requiring assistance completed. Inserted saline lock: 20 gauge kj2 in right antecubital area, using aseptic technique. Blood collected. Flushed with 10 mL NS. 12:25 Patient has correct armband on for positive identification. Bed in low position. Call kj2 light in reach. Adult w/ patient. Provided Education on: call light, fall precautions. 13:06 CT Chest For PE Angio In Process Unspecified. EDMS 15:38 Eduard Varela MD is Referral Physician. ms3 15:50 IV discontinued, intact, bleeding controlled, No redness/swelling at site. kj2 Administered Medications: No medications were administered Medication: 12:26 VIS not applicable for this client. kj2 Outcome: 15:38 Discharge ordered by . ms3 15:40 Condition: stable kj2 15:49 Discharged to home ambulatory, with family, kj2 15:49 Discharge instructions given to patient, family, Instructed on discharge instructions, follow up and referral plans. Demonstrated understanding of instructions, follow-up care, 15:50 Patient left the ED. kj2 Signatures: Dispatcher [employer] EDMA La Vivar RN RN Rajinder Monae DO DO ms3 Harris, It[place] mg5 Lotus Michele, NOEMY RN kj2 Corrections: (The following items were deleted from the chart) 12:27 12:26 PMHx: "Myotonia"; kj2 kj2
[2024-02-09 16:00] VITALS: TEMP 97.9
[2024-02-09 16:06] VITALS: BP 114/85; O2SAT 100
--- OUTSIDE RECORDS SUMMARY | 2024-02-12 08:40 | XMS REPORT | Continuity of Care Document ---
Author Name Unknown Address [address] [facility] [address] [place] [address] [facility] Address [address] [facility] [facility] [address] [place] [address] Care Team Providers Care Harbor Tug Captain Name Role Phone MURPHY SOLIMAN Primary Care Physician UnavailEstefania Reed Attending Clinician Unavailable RADIOLOGY Attending Clinician Unavailable NAOMI VILLANUEVA Attending Clinician [place], [facility] Main Attending Clinician Naomi Luevano MD Attending Clinician [phone] Doctor Unassigned, [place] Attending Clinician U RIVKA Juares Attending Clinician Unavailable Elio Franks MD Attending Clinician [phone] ELIO FRANKS Attending Clinician Zaki Stein MD Attending Clinician ZAKI RINCON Attending Clinician Unavail Estefania Kincaid Admitting Clinician Unavailable Payers Payer Name Policy Type Policy Number Effective Date Expirati on Date Source [employer] MEDICARE OUT OF NETWORK [id number] 2020 00:00:00 Problems Condition Name Condition Details Condition Category Status Onset Date Resolution Date Last Treatment Date Treating Clinician Comments Source Abnormal EKG Abnormal EKG Disease Active 12-02 00:00: 00 [facility] BAUTISTA (dyspnea on exertion) BAUTISTA (dyspnea on exertion) Disease Active 12-02 00:00: 00 [facility] Recurrent deep vein thrombosis (DVT) Recurrent deep vein thrombosis (DVT) Disease Active 12-02 00:00: 00 [facility] Allergies, Adverse Reactions, Alerts Allergy Name Allergy Type Status Severity Reaction(s) Onset Date Inactive Date Treating Clinician Comments Source codeine DA Active SV difficulty breathing 2022-06 00:00: 00 [facility] ASPIRIN DRUG INGREDI Active N/V 2016-06 00:00: 00 [facility] Aspirin Propensi ty to adverse reaction s Active Nausea and/or Vomiting 2016-06 00:00: 00 [facility] Social History Social Habit Start Date Stop Date Quantity Comments Source Exposure to SARS-CoV-2 (event) Not sure [facility] History of tobacco use Cigarette Smoker [facility] Alcohol intake 2018-07-30 00:00:00 2018-07-30 00:00:00 Current non-drinker of alcohol (finding) [facility] Cigarettes smoked current (pack per day) - Reported 2016-12-02 00:00:00 2016-12-02 00:00:00 [facility] Cigarette pack-years 2016-12-02 00:00:00 2016-12-02 00:00:00 [facility] Sex Assigned At 1960 00:00:00 1960 00:00:00 [facility] Smoking Status Start Date Stop Date Source Current every day smoker 2016-12-02 00:00:00 [facility] Medications Ordered Medication Name Filled Medication Name Start Date Stop Date Current Medication? Ordering Clinician Indication Dosage Frequency Signature (SIG) Comments Components Source acetaminoph en-codeine (TYLENOL-CO DEINE #3) 300-30 mg tablet 2016-06 00:00: 00 Yes 1{tbl} Take 1 tablet by mouth every 6 (six) hours as needed for Pain (scale 4-6) (for cough). [facility] cyclobenzap rine 10 mg tablet 2016-06 00:00: 00 Yes 10mg Take 1 tablet by mouth 3 (three) times daily. [facility] APIXABAN (ELIQUIS ORAL) 2016-06 20:04: 06 Yes [id number] Take by mouth. [facility] APIXABAN (ELIQUIS ORAL) 2016-06 15:04: 06 Yes [id number] Take by mouth. [facility] Hydrocodone -Acetaminop hen (VICODIN) 5-300 mg tablet 2016-06 00:00: 00 Yes 1{tbl} Take 1 tablet by mouth every 6 (six) hours as needed for Pain (scale 1-3). [facility] ELIQUIS 5 mg tablet 03-16 00:00: 00 Yes 5mg Take 5 mg by mouth 2 (two) times daily. [facility] phentermine 37.5 mg tablet 03-16 00:00: 00 Yes 37.5mg Take 37.5 mg by mouth every morning. [facility] Procedures Procedure Date / Time Performed Performing Clinician Source PROTEIN URINE, URINALYSIS 2021-04-02 15:24:00 Elio Franks [facility] URINALYSIS 2021-04-02 15:24:00 Elio Franks [facility] PHOSPHORUS 2021-04-02 15:16:00 Elio Franks [facility] ALBUMIN 2021-04-02 15:16:00 Elio Franks [facility] URIC ACID 2021-04-02 15:16:00 Elio Franks [facility] THYROID STIMULATING HORMONE 2021-04-02 15:16:00 Elio Franks [facility] BASIC METABOLIC PANEL (NA, K, CL, CO2, GLUCOSE, BUN, CREATININE, CA) 2021-04-02 15:16:00 Elio Franks [facility] ASSIGNMENT OF BENEFITS 2021-04-02 14:54:20 Docto r Unassigned, [place] [facility] ASSIGNMENT OF BENEFITS 2020-03-20 18:39:26 Docto r Unassigned, [place] [facility] ASSIGNMENT OF BENEFITS 2019-09-04 20:12:22 Docto r Unassigned, [place] [facility] NO SHOW OR MISSED APPOINTMENT POLICY ACKNOWLEDGEMENT 2019-08-26 16:29:44 Doctor Unassigned, [place] [facility] CONSENT/REFUSAL FOR DIAGNOSIS AND TREATMENT 2019-07-09 17:43:32 Doctor Unassigned, [place] [facility] ASSIGNMENT OF BENEFITS 2019-07-09 17:43:12 Docto r Unassigned, [place] [facility] Encounters Start Date/Time End Date/Time Encounter Type Admission Type Attending [facility] Care Department Encounter ID Source 2023-06-10 08:51:00 2023-06-11 11:20:[address] [facility] MEDI.01 [id number] [facility] 2022-09-14 00:00:00 2022-09-14 00:00:00 Outpatient R RADIOLOGY [facility] [id number] [facility] 2022-03-30 13:15:00 2022-03-30 13:15:00 Outpatient NAOMI CHEN [facility] [id number] [facility] 2021-04-02 09:54:09 2021-04-02 13:27:09 Can Washer Visit Jeana, [facility] Naomi Small [facility] 1..840.114 350.1.13.10 4.2.7.2.686 [id number] [facility] 2021-04-02 09:30:00 2021-04-02 09:30:00 Outpatient R NAOMI VILLANUEVA [facility] [id number] [facility] 2021-04-02 00:00:00 2021-04-02 00:00:00 Orders Only Doctor Unassigned, [place] [facility] 1.840.114 350.1.13.10 4.2.7.2.686 [id number] [facility] 2020-03-26 14:00:00 2020-03-26 14:00:00 Outpatient R RIVKA VUONG [facility] [id number] [facility] 2020-03-20 13:51:21 2020-03-20 14:06:21 Can Washer Visit Pob, [facility] Main Elio Franks [facility] Building 1.114 350.1.13.10 4.2.7.2.686 [id number] [facility] 2020-03-20 13:45:00 2020-03-20 13:45:00 Outpatient R [facility] [id number] [facility] 2020-03-20 00:00:00 2020-03-20 00:00:00 Orders Only Doctor Unassigned, [place] [facility] 1..114 350.1.13.10 4.2.7.2.686 [id number] [facility] 2019-09-04 15:16:22 2019-09-04 15:31:22 Can Washer Visit Pob, [facility] Main [facility] Building 1.114 350.1.13.10 4.2.7.2.686 [id number] [facility] 2019-09-04 15:15:00 2019-09-04 15:15:00 [id number] 2019-09-04 00:00:00 2019-09-04 00:00:00 Orders Only Doctor Unassigned, [place] [facility] 1.114 350.1.13.10 4.2.7.2.686 [id number] [facility] 2019-08-28 08:40:32 2019-08-28 08:55:32 Can Washer Visit Pob, [facility] Main Zaki Rincon [facility] Building 1.2.840.114 350.1.13.10 4.2.7.2.686 [id number] [facility] 2019-08-28 08:45:00 2019-08-28 08:45:00 Outpatient R ZAKI RINCON [facility] [id number] [facility] 2019-08-26 11:30:00 2019-08-26 11:30:00 Outpatient R ELIO FRANKS [facility] [id number] [facility] 2019-08-26 10:29:40 2019-08-26 11:22:05 Can Washer Visit Po, [facility] 1.2.840.114 350.1.13.10 4.2.7.2.686 [id number] [facility] 2019-08-26 00:00:00 2019-08-26 00:00:00 Orders Only Doctor Unassigned, [place] [id number] 350.1.13.10 4.2.7.2.686 [id number] [facility] 2019-07-09 11:46:26 2019-07-09 12:01:26 Can Washer Visit Po, [facility] Main [place] [facility] 1.2.840.114 350.1.13.10 4.2.7.2.686 [id number] [facility] 2019-07-09 00:00:00 2019-07-09 00:00:00 Orders Only Doctor Unassigned, [place] [facility] 1.2840.114 350.1.13.10 4.2.7.2.686 [id number] [facility] Results Test Description Test Time Test Comments Results Resul t Comments Source - XR CHEST 1 V 2023-06-11 06:36:00 [facility] 1960 Sex: F Name: CAROLANN RODRIGUEZ [facility] : 1960 Age/S: 62 / F [address] Unit #: [id number] Loc: [place] [address] Phys: Ignacia Culp MD Cardiology Acct: [id number] Dis Date: Status: ADM IN PHONE #: [phone] Exam Date: 06/11/2023 0505 FAX #: Reason: Post implanted device EXAMS: CPT: [id number] XR CHEST 1 V [id number] Fluoro Time: DAP (Gy m2): Air Kerma (mGy): H 20 TIME OF STUDY: 06/11/2023 12:54 PM REASON FOR EXAM: Post implanted device COMPARISON: 1 day prior. FINDINGS: AP view of the chest was obtained. Support devices: A left chest pacemaker is in place with the leads in their expected locations. Lungs: Normal lung volume. No mass, or consolidation. Normal pulmonary vascularity. Pleura: No pleural effusion or pneumothorax. Heart and Mediastinum: Normal cardiomediastinal silhouette and great vessels. Bones: Normal regional skeletal structures. IMPRESSION: 1. 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 No pneumothorax. at 0636 Reported and signed by: Jose Carnes M.D. CC: Ignacia Culp MD; Estefania Barton MD PAGE 1 Signed Report Name: [facility] [place] [facility] 1960 Age/S: 62 / F [address] Unit #: [id number] Loc: [place] [address] Phys: Ignacia Culp MD Cardiology Acct: [id number] Dis Date: Status: ADM IN PHONE #: [phone] Exam Date: 06/11/2023 0506 FAX #: Reason: Post implanted device EXAMS: CPT: [id number] XR CHEST 1 V [id number] Fluoro Time: DAP (Gy m2): Air Kerma (mGy): (Continued) Technologist: Toma Marin Trnscb Date/Time: 06/11/2023 (0636) RachelSI1 Orig Print D/T: S: 06/11/2023 (6694) PAGE 2 Signed Report CBC W/AUTO [id number] 04:52:00* Test Item Value Reference Range Interpretation Comme nts WHITE BLOOD CELL (test code = WBC) 6.4 K/mm3 3.5-11.0 N RED BLOOD CELL (test code = RBC) 3.65 M/mm3 4.70-6.10 L HEMOGLOBIN (test code = HGB) 11.7 G/DL 10.4-14.9 N HEMATOCRIT (test code = HCT) 38.4 % 31.5-44.1 N MEAN CELL VOLUME (test code = MCV) 105.2 Fl 84.5-98.6 H MEAN CELL HGB (test code = MCH) 32.1 pg 27.0-34.2 N MEAN CELL HGB CONCETRATION (test code = MCHC) 30.5 G/DL 31.5-34.0 L RED CELL DISTRIBUTION WIDTH (test code = RDW) 13.9 SD 11.5-14.5 N PLATELET COUNT (test code = PLT) 198 K/mm3 150-450 N MEAN PLATELET VOLUME (test c ode = MPV) 9.20 fL 7.0-10.5 N NEUTROPHIL % (test code = NT%) 48.0 % 40-76 IMMATURE GRANULOCYTE % (test code = IG%) 0.2 % 0.0-5.0 N LYMPHOCYTE % (test code = LY%) 41.5 % 20.5-51.1 N MONOCYTE % (test code = MO%) 8.0 % 1.7-9.3 N EOSINOPHIL % (test code = EO%) 1.7 % 0.0-6.0 N BASOPHIL % (test code = BA%) 0.6 % 0.0-2.0 N NUCLEATED RBC % (test code = NRBC%) 0.0 /100WBC% 0.0-1.0 N NEUTROPHIL # (test code = NT#) 3.1 K/mm3 1.8-7.6 N IMMATURE GRANULOCYTE # (test code = IG#) 0.01 x10 3/uL 0.00-0.03 N LYMPHOCYTE # (test code = LY#) 2.7 K/mm3 0.6-3.2 N MONOCYTE # (test code = MO#) 0.5 K/mm3 0.3-1.1 N EOSINOPHIL # (test code = EO#) 0.1 K/mm3 0.0-0.4 N BASOPHIL # (test code = BA#) 0.0 K/mm3 0.0-0.1 N NUCLEATED RBC # (test code = NRBC#) 0.0 K/mm3 0.0-0.1 N - XR CHEST 1 [id number] 16:04:00 [facility] : 1960 Sex: F Name: CAROLANN RODRIGUEZ [facility] : 1960 Age/S: 62 / F [id number] Unit #: [id number] Loc: [place] [address] Phys: Ignacia Culp MD Cardiology Acct: [id number] Dis Date: Status: ADMIN PHONE #: [phone] Exam Date: 06/10/2023 1326 FAX #: Reason: Post implanted device EXAMS: CPT: [id number] XR CHEST 1 V [id number] Fluoro Time: DAP (Gy m2): Air Kerma (mGy): H 20 TIME OF STUDY: 06/10/2023 12:54 PM REASON FOR EXAM: Post implanted device COMPARISON: None. FINDINGS: AP view of the chest was obtained. Support devices: A left chest pacemaker is in place with the leads in their expected locations. Lungs: Normal lung volume. No mass, or consolidation. Normal pulmonary vascularity. Pleura: No pleural effusion or pneumothorax. Heart and Mediastinum: Normal cardiomediastinal silhouetteand great vessels. Bones: Normal regional skeletal structures. IMPRESSION: 1. 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 No pneumothorax. at 1604 Reported and signed by: Jose Carnes M.D. CC: Ignacia Rosales Cardiology Suni CHAMBERLAIN; Estefania Barton MD PAGE 1 Signed Report Name: CAROLANN RODRIGUEZ [place] : 1960 Age/S: 62 / F [id number] Unit#: [id number] Loc: [place] [address] Phys: Ignacia Culp MD Cardiology Acct: [id number] Dis Date: Status: ADM IN PHONE #: [phone] Exam Date: 06/10/2023 1326 FAX #: Reason: Post implanted device EXAMS: CPT: [id number] XR CHEST 1 V 65581 Fluoro Time: DAP (Gy m2): Air Kerma (mGy): (Continued) Technologist: Gloria Wallace RT(R) Trnscb Date/Time: 06/10/2023 (1048) [email or web address] PAGE 2 Signed ReportPROTHROMBIN [id number] 10:36:00* Test Item Value Reference Range Interpretation Comme nts PT PATIENT (test code = PTP) 11.5 SECONDS 9.3-12.9 N INTERNATIONAL NORMAL RATIO (test code = INR) 1.04 INR Unit 0.8-1.2 N TARGET INR BY INDICATION Indication INR1. Prophylaxis of venous thrombosis 2.0 - 3.0 (orthopedic surgery), Prophylaxis of venous thrombosis (other than high-risk surgery), Treatment of Deep Vein Thrombosis/Pulmonary Embolism, Prevention of systemic embolism - Tissue heart valves, Acute Myocardial Infarction (to prevent systemic embolism), Valvular heart disease, Acute Myocardial Infarction (to prevent systemic embolism), Valvular heart disease, Atrial Fibrillation, Bileaflet mechanical valve in aortic position.2. Mechanical prosthetic valves (high risk), 2.5 - 3.5 Presence of Lupus Anticoagulant or Antiphospholipid Antibodies, Prevention of systemic embolism - Acute Myocardial Infarction (to prevent recurrent infarct). COMPREHENSIVE METABOLIC [id number] 10:09:00* Test Item Value Reference Range Interpretation Comme nts SODIUM (test code = NA) 143 mmol/L 134-147 N POTASSIUM (test code = K) 4.8 mmol/L 3.4-5.0 N CHLORIDE (test code = CL) 111 mmol/L 100-108 H CARBON DIOXIDE (test code = CO2) 30 mmol/L 21-32 N ANION GAP (test code = GAP) 2.0 GAP calc 4.0-15.0 L GLUCOSE (test code = GLU) 120 MG/DL 70-110 H BLOOD UREA NITROGEN (test code = BUN) 15 MG/DL 7-18 N GLOMERULAR FILTRATION RATE (test code = GFR) >=60 max estimate estGFR >60 The Glomerular Filtration Rate is a calculated parameterbased on serum Creatinine, patient age and sex. GFR valuesless than 60 mL/min/1.73 square meters are indicative ofChronic Kidney Disease. Values less than 15 mL/min/1.73square meters indicate Kidney failure. The calculation forGFR is based on the CKD-EPI (202) calculation. This formulais race indifferent and is the recommended formula for GFRby the National Kidney Foundation for Adults.The GFR will not calculate if the sex is unknown or if thepatient's age is <18 years. CREATININE (test code = CREAT) 1.0 MG/DL 0.6-1.0 N TOTAL PROTEIN (test code = PROT) 7.1 G/DL 6.4-8.2 N ALBUMIN (test code = ALB) 3.4 G/DL 3.4-5.0 N GLOBULIN (test code = GLOB) 3.7 GM/dL ALBUMIN/GLOBULIN RATIO (test code = A/G) 0.9 RATIO 1.2-2.2 L CALCIUM (test code = CA) 10.1 MG/DL 8.5-10.1 N BILIRUBIN TOTAL (test code = BILT) 0.70 MG/DL 0.2-1.2 N SGOT/AST (test code = AST) 28 Unit/L 15-37 N SGPT/ALT (test code = ALT) 19 Unit/L 12-78 N ALKALINE PHOSPHATASE TOTAL (test code = ALKP) 89 Unit/L 45-117 N LIPID PROFILE (CORONARY RISK)2023-06-10 10:09:00* Test Item Value Reference Range Interpretation Comme nts TRIGLYCERIDES (test code = TRIG) 88 MG/DL 0-150 N CHOLESTEROL (test code = CHOL) 165 MG/DL 133-200 N CHOLESTEROL/HDL RATIO (test code = CHOLHDL) 2.54 RATIO See_Comment RISK ASSOCIATED WITH CHOL/HDL RATIOS: RISK MALE FEMALE1/2 AVERAGE 3.43 3.27AVERAGE 4.97 4.442X AVERAGE 9.55 7.053X AVERAGE 23.39 11.04 NOTE THAT THE REFERENCE VALUE IS RELATED TO RISK LEVELS ASRECOMMENDED BY THE [facility]ATIONAL [facility]G, AND [facility]LOOD IN[facility]. [Automated message] The system which generated this result transmitted reference range: 0-. The reference range was not used to interpret this result as normal/abnormal. HDL CHOLESTEROL (test code = HDL) 65 MG/DL 40-59 H NON-HDL CHOLESTEROL (test code = NHDL) 100 mg/dL <130 LIPOPROTEIN LDL (test code = LDL) 92 MG/DL 0-129 N <100 CDJPIPW44 0 - 129 NEAR OPTIMAL/ABOVE [id number] - 159 ABDWDWDRDM473 - 189 HIGH>OR= 190 VERY HIGHNOTE THAT GUIDELINES ARE PROVIDED BY NATIONAL CHOLESTEROLEDUCATION PROGRAM ADULT TREATMENT PANEL III LDL/HDL (test code = LDL/HDL) 1.41 Ratio See_Comment L [Automated [employer] ge] The system which generated this result transmitted reference range: 1.48-3.22 Avg. The reference range was not used to interpret this result as normal/abnormal. [id number] 10:09:00* Test Item Value Reference Range Interpretation Comme nts MAGNESIUM (test code = MAG) 2.3 MG/DL 1.8-2.4 N CBC W/AUTO [id number] 09:28:00* Test Item Value Reference Range Interpretation Comme nts WHITE BLOOD CELL (test code = WBC) 7.4 K/mm3 3.5-11.0 N RED BLOOD CELL (test code = RBC) 4.26 M/mm3 4.70-6.10 L HEMOGLOBIN (test code = HGB) 13.8 G/DL 10.4-14.9 N HEMATOCRIT (test code = HCT) 43.8 % 31.5-44.1 N MEAN CELL VOLUME (test code = MCV) 102.8 Fl 84.5-98.6 H MEAN CELL HGB (test code = MCH) 32.4 pg 27.0-34.2 N MEAN CELL HGB CONCETRATION (test code = MCHC) 31.5 G/DL 31.5-34.0 N RED CELL DISTRIBUTION WIDTH (test code = RDW) 14.2 SD 11.5-14.5 N PLATELET COUNT (test code = PLT) 257 K/mm3 150-450 N MEAN PLATELET VOLUME (test c ode = MPV) 9.30 fL 7.0-10.5 N NEUTROPHIL % (test code = NT%) 61.4 % 40-76 N IMMATURE GRANULOCYTE % (test code = IG%) 0.1 % 0.0-5.0 N LYMPHOCYTE % (test code = LY%) 29.4 % 20.5-51.1 N MONOCYTE % (test code = MO%) 6.5 % 1.7-9.3 N EOSINOPHIL % (test code = EO%) 1.9 % 0.0-6.0 N BASOPHIL % (test code = BA%) 0.7 % 0.0-2.0 N NUCLEATED RBC % (test code = NRBC%) 0.0 /100WBC% 0.0-1.0 N NEUTROPHIL # (test code = NT#) 4.5 K/mm3 1.8-7.6 N IMMATURE GRANULOCYTE # (test code = IG#) 0.01 x10 3/uL 0.00-0.03 N LYMPHOCYTE # (test code = LY#) 2.2 K/mm3 0.6-3.2 N MONOCYTE # (test code = MO#) 0.5 K/mm3 0.3-1.1 N EOSINOPHIL # (test code = EO#) 0.1 K/mm3 0.0-0.4 N BASOPHIL # (test code = BA#) 0.1 K/mm3 0.0-0.1 N NUCLEATED RBC # (test code = NRBC#) 0.0 K/mm3 0.0-0.1 N THYROID STIMULATING [id number] 16:50:19* Test Item Value Reference Range Interpretation Comme nts TSH (test code = 5820366795) See_Comment L [Automated messa ge] The system which generated this result transmitted reference range: 0.45 - 4.70 mIU/L. The reference range was not used to interpret this result as normal/abnormal. Lab Interpretation (test code = 51198-6) Abnormal [facility] METABOLIC PANEL (NA, K, CL, CO2, GLUCOSE, BUN, CREATININE, CA)2021-04-02 16:21:34* Test Item Value Reference Range Interpretation Comme nts NA (test code = 9315898214) 143 mmol/L 135-145 K (test code = 1930390667) 4.6 mmol/L 3.5-5.0 CL (test code = 5820633416) 106 mmol/L 98-108 CO2 TOTAL (test code = 2466008422) 34 mmol/L 23-31 H AGAP (test code = 7906913843) 2-16 BUN (test code = 1882502691) 19 mg/dL 7-23 GLUCOSE (test code = 5449095298) 115 mg/dL 70-110 H CREATININE (test code = 8705335635) 0.97 mg/dL 0.50-1.04 CALCIUM (test code = 2955936668) 10.1 mg/dL 8.6-10.6 eGFR (test code = 2946179340) mL/min/1.73m2 FAISAL (test code = FAISAL) Association of [...] or abnormalities in imaging tests). Lab Interpretation (test code = 94987-7) [facility] 16:21:14* Test Item Value Reference Range Interpretation Comme nts PHOSPHORUS (test code = 1675023044) 3.1 mg/dL 2.5-5.0 Lab Interpretation (test cod e = 35509-3) Normal [facility] [id number] 16:21:14* Test Item Value Reference Range Interpretation Comme nts URIC ACID (test code = 6959070560) 4.8 mg/dL 2.9-6.0 Lab Interpretation (test cod e = 02759-3) Normal [facility] 16:17:53* Test Item Value Reference Range Interpretation Comme nts ALBUMIN (test code = 8421496508) 4.3 g/dL 3.5-5.0 Lab Interpretation (test cod e = 75478-9) Normal [facility] Notes Date/Time Note Provider Source 2023-06-11 10:00:00 [facility] Hospitalist Discharge Summary REPORT#:[id number] REPORT STATUS: Signed REPORT INITIALIZATION DATE:06/11/23 TIME:1000 PATIENT: CAROLANN RODRIGUEZ UNIT #: [id number] ROOM/BED: [place] [address] : [birth year] AGE: 62 SEX: F ATTEND: Estefania Barton MD ADM AUTHOR: Isidra Shah REPT SERVICE DT/TIME: 06/11/23 1000 * ALL edits or amendments must be made on the electronic/computer document * General Information Date of admission: Observation Start Date: 06/10/23 Date of admission: 06/10/23 Discharge date: 06/11/23 Discharge diagnosis: Complete heart block s/p PPM 06/10/23 Hx of PE on Eliquis Hx of COPD Hx of myotonic muscular dystrophy Hospital course: 62 y/o female with PMHx of HLD, PE on Eliquis, myotonic muscular dystrophy, complete heart block was admitted to the hospital for postoperative monitoring after PPM placement 06/10/[address] Culp. Pt was monitored under continuous telemetry and had a postoperative CXR that was normal. Labs are unremarkable and pain has been well controlled. Per Cardiology, pt is to resume her Eliquis tomorrow 06/12/23 with lower dose of 2.5mg BID that was discussed with pt and her at bedside today. She also already has a rx for Keflex abx at the pharmacy and was advised to pick it up and start today. Vital signs have remained stable. Will DC home with Cardiology follow up. Med Rec Med Rec Discharge meds: Continue taking these medications: SIMVASTATIN (SIMVASTATIN) 20 MG TAB 20 MILLIGRAM ORAL DAILY. FUROSEMIDE (LASIX) 20 MG TAB 20 MILLIGRAM ORAL DAILY. OXYBUTYNIN CHLORIDE (OXYBUTYNIN CHLORIDE ER) 10 MG TAB.SR.24H 10 MILLIGRAM ORAL DAILY. APIXABAN (ELIQUIS) 5 MG TAB 5 MILLIGRAM ORAL TWICE DAILY. SENNA (SENOKOT) 8.6 MG TAB 8.6 MILLIGRAM ORAL DAILY. ALBUTEROL (PROVENTIL HFA 90 MCG/ACT 6.7 GM) 90 MCG INHALER 1 PUFF INHALATION RT - EVERY 4 HOURS. Objective VS/I O Last Documented: Result Date Time Pulse Ox 98 06/11 0857 FiO2 21 06/11 0857 O2 Delivery Room air 06/11 857 B/P 111/69 06/11 075 B/P Mean 83.2 06/11 750 Temp 97.9 06/11 075 Pulse 59 06/11 075 Resp 16 06/11 075 24 hour I O ending at 0700: 06/11 0700 06/10 1900 Intake Total 200 Output Total Balance 200 Intake, Oral 200 Number Voids 1 2 Patient 51 kg Weight Weight Stated/Reported Measurement Method General appearance: chronically ill appearing, frail, alert, no acute distress Head/Eyes: atraumatic, normocephalic ENT: poor dentition, moist mucosal membranes Cardiovascular: normal heart sounds, regular rate rhythm Respiratory: symmetric expansion, no distress Abdomen: non-tender, soft Extremities: moves all, LUE in shoulder sling Neuro/YARN EXAMINER: alert, normal speech Psychiatry: normal affect, normal mood Results Findings/Data: Laboratory Tests: 06/11 0425 Chemistry Sodium (134 - 147 mmol/L) 142 Potassium (3.4 - 5.0 mmol/L) 4.1 Chloride (100 - 108 mmol/L) 112 H Carbon Dioxide (21 - 32 mmol/L) 26 Anion Gap (4.0 - 15.0 GAP calc) 4.0 BUN (7 - 18 MG/DL) 13 Creatinine (0.6 - 1.0 MG/DL) 0.9 Glomerular Filtr Rate (>60 estGFR) >=60 max estimate Glucose (70 - 110 MG/DL) 100 Calcium (8.5 - 10.1 MG/DL) 9.5 Hematology WBC (3.5 - 11.0 K/mm3) 6.4 RBC (4.70 - 6.10 M/mm3) 3.65 L Hgb (10.4 - 14.9 G/DL) 11.7 Hct (31.5 - 44.1 %) 38.4 MCV (84.5 - 98.6 Fl) 105.2 H MCH (27.0 - 34.2 pg) 32.1 MCHC (31.5 - 34.0 G/DL) 30.5 L RDW (11.5 - 14.5 SD) 13.9 Plt Count (150 - 450 K/mm3) 198 MPV (7.0 - 10.5 fL) 9.20 Neut % (Auto) (40 - 76 %) 48.0 Lymph % (Auto) (20.5 - 51.1 %) 41.5 Gregory % (Auto) (1.7 - 9.3 %) 8.0 Eos % (Auto) (0.0 - 6.0 %) 1.7 Baso % (Auto) (0.0 - 2.0 %) 0.6 Neut # (Auto) (1.8 - 7.6 K/mm3) 3.1 Lymph # (Auto) (0.6 - 3.2 K/mm3) 2.7 Gregory # (Auto) (0.3 - 1.1 K/mm3) 0.5 Eos # (Auto) (0.0 - 0.4 K/mm3) 0.1 Baso # (Auto) (0.0 - 0.1 K/mm3) 0.0 Abs Immat Gran (auto) (0.00 - 0.03 x10 3/uL) 0.01 Immature Gran % (0.0 - 5.0 %) 0.2 Nucleated RBC % (0.0 - 1.0 /100WBC%) 0.0 Radiology data: Recent Impressions: RADIOLOGY - XR CHEST 1 V 06/10 1320 Report Impression - Status: SIGNED Entered: 06/10/2023 1608 IMPRESSION: 1. 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 No pneumothorax. Impression By: Savage Carnes M.D. RADIOLOGY - XR CHEST 1 V 06/11 0505 Report Impression - Status: SIGNED Entered: 06/11/2023 0639 IMPRESSION: 1. 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 No pneumothorax. Impression By: Savage Carnes M.D. Discharge Instructions PCP PCP follow-up: PCP: Ignacia Culp MD Cardiology Discharge to: Home/Self Care Additional Discharge Routines: PCP Follow-Up, Specialty Person Follow-Up, Add. instructions Diet: Cardiac Additional instructions: Do not take Eliquis today. Start Eliquis tomorrow with 2.5mg twice daily (cut tablet in half). Start taking keflex antibiotics today as directed Discharge management: face to face encounter, discharge 32 minutes Follow-up Appointments PCP follow-up: PCP: Ignacia Culp MD Cardiology PCP follow up timeframe: In 5 days at 1217 at 1407 RPT #: [id number] [facility] 2023-06-11 05:00:00 [id number] [facility] [id number] [place] [address] PATIENT NAME: CAROLANN RODRIGUEZ ADMIT DATE: 06/10/23 ACCOUNT NO: [id number] ROOM NO: [facility] AGE: 62 REPORT TYPE: eELECTROCARDIOGRAM SEX: F ADMITTING PHYSICIAN: Estefania Barton MD ATTENDING PHYSICIAN: Estefania Barton MD Order: [id number] Test Reason : S/P PPI Test Date/Time Stamp: MonJun 11 2023 05:00:17 Blood Pressure : / mmHG Vent. Rate : 060 BPM Atrial Rate : 060 BPM P-R Int : 000 ms QRS Dur : 178 ms QT Int : 512 ms P-R-T Axes : 000 259 083 degrees QTc Int : 512 ms AV dual-paced rhythm Abnormal ECG When compared with ECG of 10-JUN-2023 13:17, Vent. rate has decreased BY 24 BPM Confirmed by IGNACIA CULP ([id number]) on 06/11/2023 8:15:07 AM Referred By: Ignacia Culp Confirmed by:IGNACIA CULP at 0815 PATIENT NAME: CAROLANN RODRIGUEZ [facility] 2023-06-10 13:40:00 [facility]) Hospitalist History Physical REPORT#:[id number] REPORT STATUS: Signed REPORT INITIALIZATION DATE:06/10/23 TIME:1339 PATIENT: CAROLANN RODRIGUEZ UNIT #: [id number] ROOM/BED: [place] [address] : 59 AGE: 62 SEX: F ATTEND: Estefania Barton MD ADM AUTHOR: Isidra Shah REPT SERVICE DT/TIME: 06/10/23 1340 * ALL edits or amendments must be made on the electronic/computer document * Isidra Shah 06/10/23 1340: History of Present Illness HPI Chief complaint: chest soreness HPI: 62 y/o female with PMHx of PE on Eliquis, myotonic muscular dystrophy, complete heart block was admitted to the hospital for postoperative monitoring after PPM placement today by Cardiology Dr. Culp. Pt reports some mild chest soreness at PPM insertion site. Denies any palpitations or SOB. No other complaints. History Family History Family history: Reports: Hypertension. Social History Smoking status for patients 13 years old or older: Current every day smoker Date last smoked: 06/09/23 Packs per day: 20 Medication/Allergy-Vaccine Hx Medications: Home Medications: SIMVASTATIN 20 MG PO DAILY FUROSEMIDE (LASIX) 20 MG PO DAILY OXYBUTYNIN CHLORIDE (OXYBUTYNIN CHLORIDE ER) 10 MG PO DAILY APIXABAN (ELIQUIS) 5 MG PO BID SENNA (SENOKOT) 8.6 MG PO DAILY ALBUTEROL (PROVENTIL HFA 90 MCG/ACT 6.7 GM) 1 PUFF INH RTQ4H Allergies: Coded Allergies: codeine (Severe, difficulty breathing 06/07/23) Review of Systems Constitutional: Denies: chills, fever. Skin: Denies: bruising, rash. Eyes: Denies: visual loss/blurred, eye pain. ENT: Denies: nasal congestion, sore throat. Respiratory: Denies: productive cough (sputum), SOB. Cardiovascular: Reports: chest pain (chest wall). Denies: palpitations. GI: Denies: nausea, vomiting. : Denies: dysuria, hematuria. Musculoskeletal: Denies: extremity pain, extremity swelling. Neuro: Denies: headache, syncope. OBJECTIVE VS/I O: Vital Signs Date Temp Pulse Resp B/P B/P Mean Pulse Ox FiO2 06/10 97.9-98.5 39-65 16-25 110-150/57-78 85-100 Last Documented: Result Date Time Pulse Ox 98 06/10 1400 B/P 113/63 06/10 1400 O2 Delivery Room air 06/10 1400 Pulse 65 06/10 1400 Resp 16 06/10 1400 Temp 98.5 06/10 1330 Patient Weight and BMI Weight (kg): 51.000 BMI: 21.2 Medications: Active Meds + DC'd Last 24 Hrs Furosemide (LASIX) 20 MG DAILY PO Oxybutynin Chloride (DITROPAN XL) 10 MG DAILY PO Simvastatin (ZOCOR) 20 MG DAILY PO Albuterol Sulfate (PROVENTIL) 2.5 MG RTQ4H PRN PRN INH Acetaminophen (TYLENOL) 650 MG Q4H PRN PRN PO Cefazolin Sodium (KEFZOL) 1 GM Q8H IV Sterile Water (WATER FOR INJECTION) 10 ML Hydrocodone Bitart/Acetaminophen (NORCO 5/325) 1 TAB Q4H PRN PRN PO Ondansetron HCl (ZOFRAN ODT) 4 MG Q8H PRN PRN PO Sodium Chloride (SODIUM CHLORIDE) SALINE FLUSH ASDIR PRN IV Flumazenil (ROMAZICON) 0 .STK-MED ONE .ROUTE (DC) Fentanyl Citrate (SUBLIMAZE) 0 .STK-MED ONE .ROUTE (DC) Midazolam HCl (VERSED) 0 .STK-MED ONE .ROUTE (DC) Cefazolin Sodium (KEFZOL) 0 .STK-MED ONE .ROUTE (DC) Gentamicin Sulfate (GARAMYCIN) 0 .STK-MED ONE .ROUTE (DC) Heparin Sodium (Porcine) (HEPARIN 1,000 UNITS/NS 500 ML) 500 ML .STK-MED ONE IV (DC) Lidocaine HCl (lidocaine HCL) 0 .STK-MED ONE .ROUTE (DC) Diazepam (VALIUM) 5 MG ONCE PO (DC) Diphenhydramine HCl (BENADRYL) 25 MG ONCE PO (DC) Diazepam (VALIUM) 5 MG PREOP ONCE ONE PO (DC) Diphenhydramine HCl (BENADRYL) 25 MG PREOP ONCE ONE PO (DC) Sodium Chloride (0.9% Sodium Chloride) 1,000 ML PREOP IV FLUID IV General appearance: chronically ill appearing, frail, lethargic, alert, no acute distress Head/Eyes: atraumatic, normocephalic ENT: poor dentition, moist mucosal membranes Cardiovascular: normal heart sounds, regular rate rhythm Respiratory: symmetric expansion, no distress Abdomen: non-tender, soft Extremities: moves all, LUE in shoulder sling Neuro/YARN EXAMINER: alert, normal speech Psychiatry: normal affect, normal mood Results Findings/Data: Laboratory Tests: 06/10 0918 Chemistry Sodium (134 - 147 mmol/L) 143 Potassium (3.4 - 5.0 mmol/L) 4.8 Chloride (100 - 108 mmol/L) 111 H Carbon Dioxide (21 - 32 mmol/L) 30 Anion Gap (4.0 - 15.0 GAP calc) 2.0 L BUN (7 - 18 MG/DL) 15 Creatinine (0.6 - 1.0 MG/DL) 1.0 Glomerular Filtr Rate (>60 estGFR) >=60 max estimate Glucose (70 - 110 MG/DL) 120 H Calcium (8.5 - 10.1 MG/DL) 10.1 Magnesium (1.8 - 2.4 MG/DL) 2.3 Total Bilirubin (0.2 - 1.2 MG/DL) 0.70 AST (15 - 37 Unit/L) 28 ALT (12 - 78 Unit/L) 19 Total Alk Phosphatase (45 - 117 Unit/L) 89 Total Protein (6.4 - 8.2 G/DL) 7.1 Albumin (3.4 - 5.0 G/DL) 3.4 Globulin (GM/dL) 3.7 Albumin/Globulin Ratio (1.2 - 2.2 RATIO) 0.9 L Triglycerides (0 - 150 MG/DL) 88 Cholesterol (133 - 200 MG/DL) 165 LDL Cholesterol Measurd (0 - 129 MG/DL) 92 Non-HDL Cholesterol (<130 mg/dL) 100 HDL Cholesterol (40 - 59 MG/DL) 65 H LDL/HDL Ratio (1.48 - 3.22 Avg Ratio) 1.41 L Cholesterol/HDL Ratio (0 RATIO) 2.54 Coagulation INR (0.8 - 1.2 INR Unit) 1.04 PT Patient/Control Mix (9.3 - 12.9 SECONDS) 11.5 Hematology WBC (3.5 - 11.0 K/mm3) 7.4 RBC (4.70 - 6.10 M/mm3) 4.26 L Hgb (10.4 - 14.9 G/DL) 13.8 Hct (31.5 - 44.1 %) 43.8 MCV (84.5 - 98.6 Fl) 102.8 H MCH (27.0 - 34.2 pg) 32.4 MCHC (31.5 - 34.0 G/DL) 31.5 RDW (11.5 - 14.5 SD) 14.2 Plt Count (150 - 450 K/mm3) 257 MPV (7.0 - 10.5 fL) 9.30 Neut % (Auto) (40 - 76 %) 61.4 Lymph % (Auto) (20.5 - 51.1 %) 29.4 Gregory % (Auto) (1.7 - 9.3 %) 6.5 Eos % (Auto) (0.0 - 6.0 %) 1.9 Baso % (Auto) (0.0 - 2.0 %) 0.7 Neut # (Auto) (1.8 - 7.6 K/mm3) 4.5 Lymph # (Auto) (0.6 - 3.2 K/mm3) 2.2 Gregory # (Auto) (0.3 - 1.1 K/mm3) 0.5 Eos # (Auto) (0.0 - 0.4 K/mm3) 0.1 Baso # (Auto) (0.0 - 0.1 K/mm3) 0.1 Abs Immat Gran (auto) (0.00 - 0.03 x10 3/uL) 0.01 Immature Gran % (0.0 - 5.0 %) 0.1 Nucleated RBC % (0.0 - 1.0 /100WBC%) 0.0 Laboratory Tests 06/10/23 0918: [Embedded Image Not Available] Diagnosis, Assessment Plan Free Text A P: 62 y/o female with PMHx of HLD, PE on Eliquis, myotonic muscular dystrophy, complete heart block was admitted to the hospital for postoperative monitoring after PPM placement today by Cardiology Dr. Culp #Complete heart block s/p PPM 06/10/23 Monitor under continuous telemetry Keep pressure dressing in place, LUE in shoulder sling Continue perioperative IV cefazolin abx Pain control with Tylenol, [place] PRN #Hx of PE on Eliquis Eliquis currently on hold for PPM placement, to be restarted 06/12/23 per cardiology #Hx of COPD Not in acute exacerbation Duoneb tx PRN #Hx of myotonic muscular dystrophy Outpatient follow up DVT prophylaxis with SCDs, hold chemical prophylaxis due to PPM procedure Full code Vikash Moore 06/11/23 2211: Attestations Physician Attestation Agree w/findings plan: Appreciate note from WEB PAGE DEVELOPER Agree with the history and physical findings Lab works noted Imaging noted as well Findings were discussed with the LEROY and Staff at 1446 at 9052 RPT #: [id number] [facility] 2023-06-10 13:17:00 [id number] [facility] [id number] [place] [address] PATIENT NAME: CAROLANN RODRIGUEZ ADMIT DATE: 06/10/23 ACCOUNT NO: [id number] ROOM NO: L.S201 AGE: 62 REPORT TYPE: eELECTROCARDIOGRAM SEX: F ADMITTING PHYSICIAN: Estefania Barton MD ATTENDING PHYSICIAN: Estefania Barton MD Order: [id number] Test Reason : post PPM implant Test Date/Time Stamp: MonJun 10 2023 13:17:28 Blood Pressure : / mmHG Vent. Rate : 084 BPM Atrial Rate : 094 BPM P-R Int : 242 ms QRS Dur : 180 ms QT Int : 490 ms P-R-T Axes : 000 264 087 degrees QTc Int : 579 ms AV dual-paced rhythm with prolonged AV conduction with occasional ventricular-paced complexes Abnormal ECG When compared with ECG of 10-JUN-2023 09:19, Electronic ventricular pacemaker has replaced Junctional rhythm Vent. rate has increased BY 50 BPM Confirmed by IGNACIA CULP ([id number]) on 06/10/2023 3:20:58 PM Referred By: Ignacia Culp Confirmed by:IGNACIA CULP at 1520 PATIENT NAME: CAROLANN RODRIGUEZ [facility] 2023-06-10 12:48:00 [id number] [facility] [id number] [place] [address] PATIENT NAME: CAROLANN RODRIGUEZ ADMIT DATE: 06/10/23 ACCOUNT NO: [id number] ROOM NO: L.HOLD AGE: 62 REPORT TYPE: OPERATIVE REPORT SEX: F ADMITTING PHYSICIAN: Estefania Barton MD ATTENDING PHYSICIAN: Estefania Barton MD OPERATION DATE: 06/10/2023 FURNACE TENDER: Ignacia Culp MD TITLE OF PROCEDURE: Dual chamber permanent pacemaker implantation, that is MRI compatible. INDICATION FOR THE PROCEDURE: Symptomatic complete heart block. ESTIMATED BLOOD LOSS: Minimal. COMPLICATIONS: None. CONTRAST: None. ANESTHESIA: Conscious sedation with Versed and fentanyl and 1% lidocaine for local anesthesia. FINAL DIAGNOSES: Successful dual chamber MRI compatible [employer] permanent pacemaker implantation. COMPLICATIONS: None. RECOMMENDATION: Observation overnight. DESCRIPTION OF PROCEDURE: Please see enclosed report in the chart. Dictated By: Ignacia Culp MD Date Dictated: 06/10/2023 12:48:06 Date Transcribed: 06/10/2023 12:52:07 Winter/FE Receipt ID: [id number] Authenticated by Ignacia Culp MD On 06/10/2023 12:56:10 PM at 1256 PATIENT NAME: CAROLANN RODRIGUEZ [facility] 2023-06-10 09:19:00 [id number] [address] PATIENT NAME: CAROLANN RODRIGUEZ ADMIT DATE: 06/10/23 ACCOUNT NO: [id number] ROOM NO: AGE: 62 REPORT TYPE: eELECTROCARDIOGRAM SEX: F ADMITTING PHYSICIAN: ATTENDING PHYSICIAN: Ignacia Culp MD Order: [id number] Test Reason : preop Test Date/Time Stamp: [facility] Jun 10 2023 09:19:44 Blood Pressure : / mmHG Vent. Rate : 034 BPM Atrial Rate : 000 BPM P-R Int : 000 ms QRS Dur : 088 ms QT Int : 456 ms P-R-T Axes : 000 234 077 degrees QTc Int : 342 ms Junctional bradycardia Right ventricular hypertrophy with repolarization abnormality Possible Anterolateral infarct , age undetermined Abnormal ECG No previous ECGs available Confirmed by IGNACIA CULP ([id number]) on 06/10/2023 11:08:15 AM Referred By: Ignacia Culp Confirmed by:IGNACIA CULP at 1108 PATIENT NAME: CAROLANN RODRIGUEZ [facility] 2023-06-09 07:37:00 [id number] [address] PATIENT NAME: CAROLANN RODRIGUEZ ADMIT DATE: ACCOUNT NO: [id number] ROOM NO: AGE: 62 REPORT TYPE: PREOP HP REPORT SEX: F ADMITTING PHYSICIAN: ATTENDING PHYSICIAN: Ignacia Culp MD Cardiology PATIENT NAME: CAROLANN RODRIGUEZ ADMIT DATE:06/10/2023 ADMISSION DATE: 06/10/2023 10:00:00 REASON FOR ADMISSION: Symptomatic complete heart block for dual chamber permanent pacemaker implantation. HISTORY OF PRESENT ILLNESS: Carolann Rodriguez is a 62-year-old patient of mine, who I have been following in my office since October of this year. The patient has had multiple different atrial arrhythmias. She came in and saw me on 05/26/2023 and was found to be in atrial flutter with slow ventricular response. The patient has had before sinus rhythm and sinus bradycardia with Mobitz 1 second-degree AV block and first-degree AV block. The patient had a Holter monitor on 05/25/2023 that showed her minimal heart rate to be 25, average heart rate of 55 and she was with atrial flutter and slow ventricular response with 656 pauses, the longest being 2.9 seconds. The patient was discussed at that time unofficially with Dr. Freitas and she was deemed a candidate for atrial flutter ablation, so she was sent to see him in his office. The patient saw Dr. Freitas on 06/02 and at that time, she was in complete heart block, back to sinus rhythm with complete heart block with an acceptable escape rhythm. The escape rhythm was heart rate of 39. Given this EKG and given the patient's history and after seeing Dr. Freitas and giving that she is not on any medications to cause this. The patient is here today for a dual chamber permanent pacemaker implantation and then if the atrial flutter recurs, then the patient will be referred for atrial flutter ablation at a later date, but for the time being, she needs a dual chamber permanent pacemaker implantation. She has been having symptoms of extreme dizziness, presyncope, tiredness, chest discomfort, dyspnea as well as palpitations. She has been diagnosed with sick sinus syndrome and first-degree AV block and Mobitz 1 AV block in the past and now she has complete heart block. The patient has had history of pulmonary embolism in 1988 and history of deep vein thrombosis, going back to 1985. She has been on anticoagulation since and lately she has been on Eliquis and doing well on that. She underwent noninvasive workup in my office where she had a carotid Doppler on 12/13/2022 that showed less than 20% plaquing. She had the EKG as mentioned above. She had a CT of the chest on 10/06/2022 that showed the history of pulmonary embolism with pulmonary nodule noted and no coronary calcifications. Echocardiogram on 11/16/2022 showed [id number] regurgitation of the mitral valve, normal ejection fraction, pulmonary hypertension 40 to 50 mmHg. Nuclear stress test was negative for ischemia on 12/20/2022, normal ejection fraction. Holter monitors were described above. There is no history of congestive heart failure, TIAs or strokes. PAST MEDICAL HISTORY: Remarkable for the above. The patient carries a history PATIENT NAME: CAROLANN RODRIGUEZ of cardiac arrhythmias for a long time, but she has not had any previous recent workup until was described above, history of pulmonary embolism, myotonic muscular dystrophy, pulmonary nodule, COPD, lumbar disk disease and osteoarthritis. PAST SURGICAL HISTORY: She has had C-sections in the past, partial hysterectomy and cholecystectomy. ALLERGIES: CODEINE. MEDICATIONS: Albuterol, furosemide 20 mg daily, oxybutynin, and Eliquis 5 mg b.i.d. SOCIAL HISTORY: The patient is an active smoker. There is no history of alcohol or street drug use. FAMILY HISTORY: Negative for premature atherosclerosis. Positive for pacemakers. Mother had a pacemaker and history of a heart murmur. REVIEW OF SYSTEMS: Remarkable for change in appetite, fatigue, weight loss, insomnia, the above-mentioned cardiovascular symptoms, history of back problems, leg cramps, and dizziness. No passing out. No TIAs or strokes. The rest of the review of systems is as per above. No acute GI or symptoms. No TIAs or strokes. PHYSICAL EXAMINATION: GENERAL: Reveals a pleasant 62-year-old lady, in no acute distress. VITAL SIGNS: Blood pressure 101/60, pulse 40 and regular, respiratory rate 16 and unlabored, and temperature afebrile. HEENT: Head atraumatic, normocephalic. Eyes and ENT examination within normal for age. NECK: Supple, no jugular venous distention, bruits or lymphadenopathy. Normal upstroke. LUNGS: Decreased air entry, otherwise clear and resonant. HEART: Regular rate and rhythm with II/ systolic ejection murmur at the left lower sternal border. No gallops. The heart is extremely bradycardic in the high 30s and low 40s. ABDOMEN: Soft, no tenderness, no organomegaly, no masses or bruits. EXTREMITIES: 1+ distal pulses. No edema, cyanosis or clubbing. NEUROLOGIC: Alert and oriented x3. Examination appears to be nonfocal. LABORATORY DATA: Pending. Noninvasive cardiovascular workup enclosed. IMPRESSION AND PLAN: This is a 62-year-old patient with significant arrhythmias started out with a first-degree AV block and Mobitz 1 AV block and then atrial flutter with slow ventricular response and now with sinus bradycardia with complete heart block. The patient was evaluated by electrophysiology and she has significant symptoms and is in need of a dual chamber permanent pacemaker implantation. The patient is here for dual chamber permanent pacemaker implantation. The recommendation is to proceed with the above-mentioned procedures. The patient is right-handed, we will place the pacemaker on the left side. The risks and benefits of the planned procedure were discussed in detail with the patient and available family members and she is willing to proceed. Rest as per orders. PATIENT NAME: CAROLANN RODRIGUEZ Dictated By: Ignacia Culp MD Date Dictated: 06/09/2023 07:37:48 Date Transcribed: 06/09/2023 08:41:33 RAFAL/MELODY Receipt ID: [id number] Authenticated and Edited by Ignacia Culp MD On 06/09/23 5:40:18 PM at 0541 PATIENT NAME: CAROLANN RODRIGUEZ [facility]"
== END 2024-02-09 15:50 | disposition home or self-care (01) ==
LOC: ER 11:02
DX: J44.9 Chronic obstructive pulmonary disease, unspecified (principal); F17.210 Nicotine dependence, cigarettes, uncomplicated; Z86.718 Personal history of other venous thrombosis and embolism; Z86.711 Personal history of pulmonary embolism; Z79.01 Long term (current) use of anticoagulants; Z95.0 Presence of cardiac pacemaker
CPT/HCPCS: 93005; 85025; 36415; 80053; 71275; 99284; Q9967